=== PATIENT | female | born 1930 | race Caucasian/White ===

== ENCOUNTER 2017-09-29 13:20 | Observation (INO) ==
--- NOTE | 2017-09-29 14:21 | ED ---
HPI General Chief Complaint: Altered Mental Status Stated Complaint: psych eval/eac Time Seen by Provider: 09/29/17 13:47 History of Present Illness HPI narrative: Patient brought in to the emergency department via EVAC and the police. Patient apparently has dementia and there is an open DCF investigation concerning her and there is concern the patient has not been taking her medication properly. She dropped her doctor's office today, but she is not supposed to drive. He apparently appear confused and does not understand what is going on. Upon my assessment patient does not know why she is here. She has been placed under Souza act by the [place] [employer] [facility]. Related Data Home Medications Medication Instructions Recorded Confirmed bumetanide 0.5 mg PO DAILY 09/29/17 09/29/17 cyclosporine [Restasis] 1 drp OPHTHALMIC (EYE) Q12H 09/29/17 09/29/17 diltiazem HCl [DILT-XR] 240 mg PO DAILY 09/29/17 09/29/17 donepezil 5 mg PO DAILY 09/29/17 09/29/17 levothyroxine 50 mcg PO DAILY 09/29/17 09/29/17 memantine 10 mg PO BID 09/29/17 09/29/17 metoprolol tartrate 75 mg PO TID 09/29/17 09/29/17 nystatin 4 ml PO QID 09/29/17 09/29/17 pantoprazole 40 mg PO DAILY 09/29/17 09/29/17 potassium chloride 20 meq PO DAILY 09/29/17 09/29/17 pravastatin 40 mg PO HS 09/29/17 09/29/17 quetiapine 25 mg PO BID 09/29/17 09/29/17 Allergies Allergy/AdvReac Type Severity Reaction Status Date / Time methylprednisolone Allergy Unknown unknown Verified 09/29/17 13:46 metoprolol Allergy Unknown unknown Verified 09/29/17 13:46 milk Allergy Unknown unknown Verified 09/29/17 13:46 shellfish derived Allergy Unknown unknown Verified 09/29/17 13:46 warfarin Allergy Unknown unknown Verified 09/29/17 13:46 Review of Systems ROS Unobtainable unobtainable due to mental status PMFSH Medical History Medical History Cardiac pacemaker (Acute) Congestive heart failure (CHF) (Acute) Dementia (Acute) GERD (gastroesophageal reflux disease) (Acute) Hypercholesteremia (Acute) Hypertension (Acute) Hypothyroidism (Acute) Surgical history unknown (Acute) Social History Social History Recent Travel in [facility] within the Last 8 Weeks: No Recent Out of Country Travel within the Last 8 Weeks: No Immunization History Tetanus Immunization: Unsure Hx Influenza Vaccine This Season: Unable to Assess Exam Narrative Exam Narrative: GENERAL: No acute distress. SKIN: Focused skin assessment warm/dry. HEAD: Atraumatic. Normocephalic. EYES: Pupils equal and round. No scleral icterus. No injection or drainage. ENT: No nasal bleeding or discharge. Mucous membranes pink and moist. NECK: Trachea midline. No JVD. CARDIOVASCULAR: Regular rate and rhythm. No murmur appreciated. RESPIRATORY: No accessory muscle use. Clear to auscultation. Breath sounds equal bilaterally. GASTROINTESTINAL: Abdomen soft, non-tender, nondistended. Hepatic and splenic margins not palpable. MUSCULOSKELETAL: No obvious deformities. No clubbing. No cyanosis. No edema. NEUROLOGICAL: Awake and alert. No obvious cranial nerve deficits. Motor grossly within normal limits. Normal speech. PSYCHIATRIC: Appropriate mood and affect; patient is oriented to person only. She is not oriented to time or place other than to state that she is in the hospital. Course Initial Documented Vital Signs Temperature 98.4 F 09/29/17 13:56 Pulse Rate 70 09/29/17 13:56 Respiratory Rate 20 09/29/17 13:56 Blood Pressure 199/88 H 09/29/17 13:56 Pulse Oximetry 99 09/29/17 13:56 Last Documented Vital Signs Temperature 98.4 F 09/29/17 13:56 Pulse Rate 70 09/29/17 13:56 Respiratory Rate 20 09/29/17 13:56 Blood Pressure 199/88 H 09/29/17 13:56 Pulse Oximetry 99 09/29/17 13:56 Medical Decision Making [facility] Narrative Medical decision making narrative: Patient presents to the emergency department under Souza act for altered mental status. Patient placed on a light technician , continuous pulse ox, and IV access obtained. Head CT, chest x-ray, EKG and medical clearance labs ordered. Head CT: CONCLUSION:1. No definite acute finding is identified. There is a focal area of high density measuring 5 mm in the right parafalcine location in the right frontal lobe in the high convexity. Since this was partially present on the a prior examination from 2016 it is extremely unlikely to represent acute blood products. However, it is more prominent than the 2016 study so suggest attention to this at follow-up imaging.2. Otherwise, stable examination with mild generalized atrophy and mild chronic periventricular white matter change. CXR shows no acute abnormality. Discussed CT read with radiologist, advised MR w/wo can better differentiate lesion although it was present before. But patient has a pacemaker, so unable to get MRI. CBC and urinalysis within normal limits. ETOH and UDS negative. 1731: Patient has been admitted for altered mental status, psych consult placed. Differential Diagnosis Differential Diagnosis: UTI, CVA, ACS, dementia, TIA Lab Data Result diagrams: 09/29/17 14:50 09/29/17 14:50 Lab Results 09/29/17 09/29/17 09/29/17 Range/Units 14:50 14:50 14:50 WBC 5.8 (4.0-11.0) th/mm3 RBC 4.30 (4.00-5.30) mil/mm3 Hgb 11.7 (11.6-15.3) gm/dL Hct 36.3 (35.0-46.0) % MCV 84.6 (80.0-100.0) fL MCH 27.3 (27.0-34.0) pg MCHC 32.2 (32.0-36.0) % RDW 15.3 (11.6-17.2) % Plt Count 235 (150-450) th/mm3 MPV 8.8 (7.0-11.0) fL Neut % (Auto) 65.6 (16.0-70.0) % Lymph % (Auto) 24.4 (9.0-44.0) % [place] % (Auto) 7.6 (0.0-8.0) % Eos % (Auto) 1.4 (0.0-4.0) % Baso % (Auto) 1.0 (0.0-2.0) % Neut # (Auto) 3.8 (1.8-7.7) th/mm3 Lymph # (Auto) 1.4 (1.0-4.8) th/mm3 [place] # (Auto) 0.4 (0.0-0.9) th/mm3 Eos # (Auto) 0.1 (0.0-0.4) th/mm3 Baso # (Auto) 0.1 (0.0-0.2) th/mm3 WBC Differential . Differential Comment Auto diff final Sodium 144 (136-145) meq/L Potassium 4.2 (3.5-5.1) meq/L Chloride 109 H (98-107) meq/L Carbon Dioxide 24.4 (21.0-32.0) meq/L Anion Gap 11 (5-15) meq/L BUN 16 (7-18) mg/dL Creatinine 0.96 (0.50-1.00) mg/dL Estimated GFR 55 L (>89) mL/min Random Glucose 77 (74-106) mg/dL Calcium 8.9 (8.5-10.1) mg/dL Magnesium 2.2 (1.5-2.5) mg/dL Total Bilirubin 0.7 (0.2-1.0) mg/dL AST 26 (15-37) U/L ALT 17 (10-53) U/L Alkaline Phosphatase 116 (45-117) U/L Total Creatine Kinase 143 (26-192) U/L CK-MB (CK-2) 2.5 (0.5-3.6) ng/mL Troponin I Less than 0.02 L (0.02-0.05) ng/mL Total Protein 7.5 (6.4-8.2) g/dL Albumin 3.6 (3.4-5.0) g/dL TSH 0.301 L (0.358-3.740) uIU/mL Free T4 (0.76-1.46) ng/dL Urine Color (Yellw/Straw) Urine Clarity (Clear) Urine pH (5.0-8.5) Ur Specific [place] (1.002-1.035) Urine Protein (Neg-Trace) mg/dL Urine Glucose (UA) (Negative) mg/dL Urine Ketones (Negative) mg/dL Urine Occult Blood (Negative) Urine Nitrate (Negative) Urine Bilirubin (Negative) Urine Urobilinogen (Less than 2) mg/dL Ur Leukocyte Esterase (Negative) Urine RBC (0-3) /hpf Urine WBC (0-5) /hpf Ur Squamous Epith Cells (0-5) /hpf Micro UA Comment Urine Culture Comments Urine Opiates Screen (Neg) Ur Barbiturates Screen (Neg) Ur Amphetamines Screen (Neg) U Benzodiazepines Scrn (Neg) Urine Cocaine Screen (Neg) U Cannabinoids Screen (Neg) Serum Alcohol Less than 3 (0-5) mg/dL 09/29/17 09/29/17 09/29/17 Range/Units 14:50 14:55 14:55 WBC (4.0-11.0) th/mm3 RBC (4.00-5.30) mil/mm3 Hgb (11.6-15.3) gm/dL Hct (35.0-46.0) % MCV (80.0-100.0) fL MCH (27.0-34.0) pg MCHC (32.0-36.0) % RDW (11.6-17.2) % Plt Count (150-450) th/mm3 MPV (7.0-11.0) fL Neut % (Auto) (16.0-70.0) % Lymph % (Auto) (9.0-44.0) % [place] % (Auto) (0.0-8.0) % Eos % (Auto) (0.0-4.0) % Baso % (Auto) (0.0-2.0) % Neut # (Auto) (1.8-7.7) th/mm3 Lymph # (Auto) (1.0-4.8) th/mm3 [place] # (Auto) (0.0-0.9) th/mm3 Eos # (Auto) (0.0-0.4) th/mm3 Baso # (Auto) (0.0-0.2) th/mm3 WBC Differential Differential Comment Sodium (136-145) meq/L Potassium (3.5-5.1) meq/L Chloride (98-107) meq/L Carbon Dioxide (21.0-32.0) meq/L Anion Gap (5-15) meq/L BUN (7-18) mg/dL Creatinine (0.50-1.00) mg/dL Estimated GFR (>89) mL/min Random Glucose (74-106) mg/dL Calcium (8.5-10.1) mg/dL Magnesium (1.5-2.5) mg/dL Total Bilirubin (0.2-1.0) mg/dL AST (15-37) U/L ALT (10-53) U/L Alkaline Phosphatase (45-117) U/L Total Creatine Kinase (26-192) U/L CK-MB (CK-2) (0.5-3.6) ng/mL Troponin I (0.02-0.05) ng/mL Total Protein (6.4-8.2) g/dL Albumin (3.4-5.0) g/dL TSH (0.358-3.740) uIU/mL Free T4 1.08 (0.76-1.46) ng/dL Urine Color Yellow (Yellw/Straw) Urine Clarity Clear (Clear) Urine pH 6.0 (5.0-8.5) Ur Specific [place] 1.009 (1.002-1.035) Urine Protein Negative (Neg-Trace) mg/dL Urine Glucose (UA) Negative (Negative) mg/dL Urine Ketones Negative (Negative) mg/dL Urine Occult Blood Negative (Negative) Urine Nitrate Negative (Negative) Urine Bilirubin Negative (Negative) Urine Urobilinogen Less than 2 (Less than 2) mg/dL Ur Leukocyte Esterase Negative (Negative) Urine RBC 1 (0-3) /hpf Urine WBC Less than 1 (0-5) /hpf Ur Squamous Epith Cells <1 (0-5) /hpf Micro UA Comment Culture not ind Urine Culture Comments Culture not ind Urine Opiates Screen Neg (Neg) Ur Barbiturates Screen Neg (Neg) Ur Amphetamines Screen Neg (Neg) U Benzodiazepines Scrn Neg (Neg) Urine Cocaine Screen Neg (Neg) U Cannabinoids Screen Neg (Neg) Serum Alcohol (0-5) mg/dL Imaging Data Radiologist's impression: Chest X-Ray 09/29/17 14:04 CONCLUSION: No acute cardiopulmonary disease. Head CT 09/29/17 14:04 CONCLUSION: 1. No definite acute finding is identified. There is a focal area of high density measuring 5 mm in the right parafalcine location in the right frontal lobe in the high convexity. Since this was partially present on the a prior examination from 2016 it is extremely unlikely to represent acute blood products. However, it is more prominent than the 2016 study so suggest attention to this at follow-up imaging. 2. Otherwise, stable examination with mild generalized atrophy and mild chronic periventricular white matter change. ECG Data Attestation: I personally reviewed and interpreted this ECG as follows: ( Ventricular paced, rate 70, QTC 463, left axis deviation) Discharge Plan Discharge Disposition Patient Disposition: 30 Still Patient Discharge Condition Condition: Stable Discharge Details Diagnosis: Altered mental status Physicians Team ED Provider: Cinda Arevalo Primary Care Provider: John Sandoval Other Providers: John Ashby Rxs /Orders / Referrals /Forms Prescriptions: No Action quetiapine 25 mg Tablet 25 mg PO BID RF: 0 nystatin 100,000 unit/mL Suspension 4 ml PO QID RF: 0 donepezil 5 mg Tablet 5 mg PO DAILY RF: 0 diltiazem HCl [DILT-XR] 240 mg Capsule,Ext.Rel 24h Degradable 240 mg PO DAILY RF: 0 pravastatin 40 mg Tablet 40 mg PO HS RF: 0 levothyroxine 50 mcg Tablet 50 mcg PO DAILY RF: 0 pantoprazole 40 mg Tablet,Delayed Release (Dr/Ec) 40 mg PO DAILY RF: 0 bumetanide 0.5 mg Tablet 0.5 mg PO DAILY RF: 0 cyclosporine [Restasis] 0.05 % [place] 1 drp OPHTHALMIC (EYE) Q12H RF: 0 memantine 10 mg Tablet 10 mg PO BID RF: 0 metoprolol tartrate 25 mg Tablet 75 mg PO TID RF: 0 potassium chloride 20 mEq Tablet Extended Release 20 meq PO DAILY RF: 0 Status ED Status: With Doctor
--- NOTE | 2017-09-29 14:50 | CT ---
EXAM DATE: 09/29/2017 2:34 PM EDT AGE/SEX: 87 years / Female INDICATIONS: Altered mental status. CLINICAL DATA: This is the patient's initial encounter. Patient reports that signs and symptoms have been present for 1 day and indicates a pain score of Nonresponsive. MEDICAL/SURGICAL HISTORY: Non-responsive. Thyroidectomy. RADIATION DOSE: 56.35 CTDI (mGy) COMPARISON: [facility], CT BRAIN W AND W/O CONTRAST, 05/25/2015. [facility], CT BRAIN W/O CONTRAST, 04/25/2014. . TECHNIQUE: CT of the head without contrast. Using automated exposure control and adjustment of the mA and/or kV according to patient size, radiation dose was kept as low as reasonably achievable to ob tain optimal diagnostic quality images. DICOM format image data is available electronically for revi ew and comparison. FINDINGS: Cerebrum: There is mild generalized atrophy and ventricles are normal given the degree of atrophy. M ild periventricular white matter change is present. There is a focal area of high density in a parafa lcine location at the right frontal high convexity. Is present to some degree on the prior study as w ell. Otherwise, no midline shift, mass lesion, hemorrhage or acute infarction. No extraaxial fluid c ollections are seen. Posterior Fossa: The cerebellum and brainstem demonstrate no acute abnormality. The 4th ventricle is midline. The cerebellopontine angle is within normal limits. Extracranial: There is mild mucoperiosteal thickening within the right maxillary antrum. Remaining v isualized paranasal sinuses are clear. Skull: The calvaria is intact. No skull fracture. CONCLUSION: 1. No definite acute finding is identified. There is a focal area of high density measuring 5 mm in the right parafalcine location in the right frontal lobe in the high convexity. Since this was partia lly present on the a prior examination from 2016 it is extremely unlikely to represent acute blood pr oducts. However, it is more prominent than the 2016 study so suggest attention to this at follow-up i jaqui. 2. Otherwise, stable examination with mild generalized atrophy and mild chronic periventricular whit e matter change. Electronically signed by: Antonio Lawson MD 09/29/2017 2:48 PM EDT
--- NOTE | 2017-09-29 15:38 | XR ---
EXAM DATE: 09/29/2017 3:22 PM EDT AGE/SEX: 87 years / Female INDICATIONS: . Syncope. CLINICAL DATA: This is the patient's initial encounter. Patient reports that signs and symptoms have been present for 1 day and indicates a pain score of 0/10. MEDICAL/SURGICAL HISTORY: . dementia, CHF, Irregular heart beat. history obtained from nurse. Pacemaker. COMPARISON: No prior exams available for comparison. FINDINGS: The lungs are clear without infiltrate, nodule, or mass. There is no appreciable pleural effusion fo r technique. Heart and mediastinum are unremarkable. Subclavian pacer wires are present with tips i n the right atrium and ventricle. CONCLUSION: No acute cardiopulmonary disease. Electronically signed by: Tara Garcia MD 09/29/2017 3:36 PM EDT
[2017-09-29 16:04] LABS: Baso # (Auto) 0.1 th/mm3 (0.0-0.2); Eos # (Auto) 0.1 th/mm3 (0.0-0.4); Eos % (Auto) 1.4 % (0.0-4.0); Hematocrit 36.3 % (35.0-46.0); Hemoglobin 11.7 gm/dL (11.6-15.3); Lymph # (Auto) 1.4 th/mm3 (1.0-4.8); Lymph % (Auto) 24.4 % (9.0-44.0); Mean Corpuscular HGB Conc 32.2 % (32.0-36.0); Mean Corpuscular Hemoglobin 27.3 pg (27.0-34.0); Mean Corpuscular Volume 84.6 fL (80.0-100.0); Mean Platelet Volume 8.8 fL (7.0-11.0); Mono # (Auto) 0.4 th/mm3 (0.0-0.9); Mono % (Auto) 7.6 % (0.0-8.0); Neut # (Auto) 3.8 th/mm3 (1.8-7.7); Neut % (Auto) 65.6 % (16.0-70.0); Platelet Count 235 th/mm3 (150-450); Red Cell Distribution Width 15.3 % (11.6-17.2); White Blood Count 5.8 th/mm3 (4.0-11.0)
[2017-09-29 16:10] LABS: Bilirubin,Urine Negative (Negative); Clarity,Urine Clear (Clear); Color,Urine Yellow (Yellw/Straw); Glucose,Urine (UA) Negative (Negative); Leukocyte Esterase,Urine Negative (Negative); Nitrite,Urine Negative (Negative); Specific Gravity,Urine 1.009 (1.002-1.035); Squamous Epithelial Cell,Urine <1 /hpf (0-5)
[2017-09-29 16:12] LABS: Amphetamine Screen,Urine Neg (Neg); Barbiturate Screen,Urine Neg (Neg); Cannabinoid Screen,Urine Neg (Neg); Cocaine Screen,Urine Neg (Neg)
[2017-09-29 16:13] LABS: Opiate Screen,Urine Neg (Neg)
[2017-09-29 16:38] LABS: Alanine Aminotransferase 17 U/L (10-53); Albumin 3.6 g/dL (3.4-5.0); Alkaline Phosphatase 116 U/L (45-117); Anion Gap 11 meq/L (5-15); Aspartate Aminotransferase 26 U/L (15-37); Blood Urea Nitrogen 16 mg/dL (7-18); Calcium 8.9 mg/dL (8.5-10.1); Carbon Dioxide 24.4 meq/L (21.0-32.0); Chloride 109 meq/L (98-107); Creatine Kinase 143 U/L (26-192); Glomerular Filtration Rate 55 mL/min (>89); Glucose,Random 77 mg/dL (74-106); Magnesium 2.2 mg/dL (1.5-2.5); Sodium 144 meq/L (136-145); Thyroid Stimulating Hormone 0.301 uIU/mL (0.358-3.740); Total Protein 7.5 g/dL (6.4-8.2)
[2017-09-29 16:39] LABS: Potassium 4.2 meq/L (3.5-5.1)
--- NOTE | 2017-09-29 16:45 | P.CONPSY ---
Provisional Diagnosis Admission Date: September 29, 2017 13:20 Garber I.: 1. Cognitive impairment Suspect underlying dementia but rule out component of overlying delirium due to general medical condition Garber II.: Deferred History of Present Illness Service: Psychiatry Consult date: 09/29/17 Requesting Physician: Cinda Arevalo Reason for Consult: Souza act Primary Care Provider: John Sandoval MD History of Present Illness: Ms. Holloway is an 87-year-old female of uncertain past psychiatric history who presents under a Souza act by [facility] alleging that the patient has a history of dementia, that there is an open DCF investigation, that the patient has not been taking medications properly and that she has been driving contrary to orders. Reviewing the electronic medical record, I see no previous psychiatric contact within our system. Patient seen and examined. Chart reviewed. Case discussed with staff in the ED. On my examination today, the patient presents as fairly confused. MMSE score is 6/30. She says that she has been brought into the hospital "accidentally." She insists "I'm as clear as they come." I can elicit no depressive or hypomanic/manic symptoms. She denies any suicidal or homicidal ideation. She denies any audiovisual hallucinations. No pankaj delusions. Patient says that she has not eaten anything since yesterday evening, and when I ask why the patient simply says that she did not eat today. Psychiatric interview is limited because of the patient's cognitive impairment. No acute physical complaints. Past psychiatric history: Patient is likely an unreliable historian. She denies a history of psychiatric diagnosis. When I asked whether she has a history of dementia, she replies "they all dream of it." Unclear who "they" is in this context. She is not presently under the care of a psychiatrist. She denies a history of suicide attempts. Family history: Patient denies any family history of mental illness. Chemical dependency history: No reported substance use issues. Social history: Patient says that she lives alone. She is originally from [place]. She attended secondary school but did not go to college even though she was, in her words, "brilliant." She says that her family did not have the money, and so her brother was sent to college instead. She says that her work was "the greatest of them all" although she cannot tell me exactly what line of work she was in. She was for 5 years ago she tells me. She has no children. Patient requests that I not reach out to her sister, Ms. Griffin (listed as ' Jeremy' in the EMR). I did with patient's permission try to reach friend Evelyn Barclay at the number listed in the EMR. This number kept ringing with no opportunity to leave a VM. Review of Systems other (Significantly limited secondary to cognitive impairment) [facility] - Medical History Medical History: Medical History (Last Updated 09/29/17 @ 14:04 by Sobia Quintana) Cardiac pacemaker Congestive heart failure (CHF) Dementia GERD (gastroesophageal reflux disease) Hypercholesteremia Hypertension Hypothyroidism Surgical history unknown Medications and Allergies Allergies Allergy/AdvReac Type Severity Reaction Status Date / Time methylprednisolone Allergy Unknown unknown Verified 09/29/17 13:46 metoprolol Allergy Unknown unknown Verified 09/29/17 13:46 milk Allergy Unknown unknown Verified 09/29/17 13:46 shellfish derived Allergy Unknown unknown Verified 09/29/17 13:46 warfarin Allergy Unknown unknown Verified 09/29/17 13:46 Home Medications Medication Instructions Recorded Confirmed Type bumetanide 0.5 mg PO DAILY 09/29/17 09/29/17 History cyclosporine [Restasis] 1 drp OPHTHALMIC (EYE) Q12H 09/29/17 09/29/17 History diltiazem HCl [DILT-XR] 240 mg PO DAILY 09/29/17 09/29/17 History donepezil 5 mg PO DAILY 09/29/17 09/29/17 History levothyroxine 50 mcg PO DAILY 09/29/17 09/29/17 History memantine 10 mg PO BID 09/29/17 09/29/17 History metoprolol tartrate 75 mg PO TID 09/29/17 09/29/17 History nystatin 4 ml PO QID 09/29/17 09/29/17 History pantoprazole 40 mg PO DAILY 09/29/17 09/29/17 History potassium chloride 20 meq PO DAILY 09/29/17 09/29/17 History pravastatin 40 mg PO HS 09/29/17 09/29/17 History quetiapine 25 mg PO BID 09/29/17 09/29/17 History Exam Vital signs: Vital Signs 09/29/17 13:56 Temperature 98.4 F Pulse Rate 70 Respiratory Rate 20 Blood Pressure 199/88 H Pulse Oximetry 99 Intake & Output 09/28/17 09/29/17 09/29/17 18:59 06:59 18:59 Weight 58.967 kg Narrative: Physical exam completed by ED provider. On my examination today, the patient appears to be in no acute physical distress. No motor abnormalities noted except that the patient does have a mild resting hand tremor. Labs and vital signs reviewed: Laboratory Tests 09/29/17 09/29/17 09/29/17 14:50 14:50 14:50 WBC 5.8 Hgb 11.7 Plt Count 235 Sodium 144 Potassium 4.2 Chloride 109 H Carbon Dioxide 24.4 BUN 16 Creatinine 0.96 Estimated GFR 55 L AST 26 ALT 17 Alkaline Phosphatase 116 Total Creatine Kinase 143 Troponin I Less than 0.02 L TSH 0.301 L Urine Opiates Screen Ur Barbiturates Screen Ur Amphetamines Screen U Benzodiazepines Scrn Urine Cocaine Screen U Cannabinoids Screen Serum Alcohol Less than 3 09/29/17 14:55 WBC Hgb Plt Count Sodium Potassium Chloride Carbon Dioxide BUN Creatinine Estimated GFR AST ALT Alkaline Phosphatase Total Creatine Kinase Troponin I TSH Urine Opiates Screen Neg Ur Barbiturates Screen Neg Ur Amphetamines Screen Neg U Benzodiazepines Scrn Neg Urine Cocaine Screen Neg U Cannabinoids Screen Neg Serum Alcohol CK is pending. Impressions Chest X-Ray 09/29/17 14:04 CONCLUSION: No acute cardiopulmonary disease. Head CT 09/29/17 14:04 CONCLUSION: 1. No definite acute finding is identified. There is a focal area of high density measuring 5 mm in the right parafalcine location in the right frontal lobe in the high convexity. Since this was partially present on the a prior examination from 2016 it is extremely unlikely to represent acute blood products. However, it is more prominent than the 2016 study so suggest attention to this at follow-up imaging. 2. Otherwise, stable examination with mild generalized atrophy and mild chronic periventricular white matter change. Mental Status Examination Appearance: Other (Fair grooming and hygiene) Consciousness: Alert Orientation: Person (Person only) Motor Activity: Other (Motor exam as above) Speech: Hesitant Language: Other (Somewhat rambling) Fund of Knowledge: Inadequate Attention and Concentration: Easily distracted Memory: Impaired Mood: Appropriate Affect: Appropriate Thought Process & Associations: Circumstantial Thought Content: Other (Some poverty of thought) Hallucination Type: None Delusion Type: None Suicidal Ideation: No Suicidal Plan: No Suicidal Intention: No Homicidal Ideation: No Homicidal Plan: No Homicidal Intention: No Mental Status Exam Remarks: Insight and judgment, I suspect, are poor Assessment and Plan - Assessment (1) Cognitive impairment Code(s): R41.89 - Other symptoms and signs involving cognitive functions and awareness Status: Acute - Plan Plan: 87-year-old female of uncertain past psychiatric history who presents under a Souza act alleging history of dementia and alleging patient is not taking medications properly and driving when she should not. Collateral information is presently wanting. Psychiatry is consulted because of the Souza Act. On my exam, patient is confused and her MMSE score is significantly depressed. This presentation is not inconsistent with dementia, although it is also possible that there is a component of overlying delirium, perhaps multifactorial with contributions from marked hypertension, possible thyroid derangement, possible ICH, possibly other as yet occult causes. --BP is presently poorly controlled and may be contributing to poor mental status. --Consider expanding AMS workup by obtaining follow up free T4, B12/thiamine/ RBC folate, ammonia, HIV, RPR. 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 --I will leave Souza Act in place for now. Unclear if there is behavioral disturbance in the setting of cognitive impairment of the sort that would need to be managed on inpatient psychiatric unit; patient is presently calm and cooperative. If placement is required, this can likely be more readily arranged from the medical floor and the BA can be lifted prior to placement. I will plan to follow patient in consultation on the medical floor or in the CDU. Thank you for this consultation. Justification for Continued Inpatient Stay: Per primary team.
[2017-09-29 16:51] LABS: Creatine Kinase MB 2.5 ng/mL (0.5-3.6)
[2017-09-29] MEDS ORDERED: dilTIAZem 60 MG Tablet PO ONE (18:35)
--- NOTE | 2017-09-29 18:50 | P.HPFP ---
History of Present Illness History of Present Illness: 87-year-old female, past medical history of CHF, pacer placement, hypertension, thyroid disorder, presents under Souza act from doctor's office where she was deemed him capable of driving home and caring for herself due to her severe dementia. [facility] was contacted and is involved in the case, and most of the history is obtained from the ED physician who spoke with EMS and the doctor's note and the police Souza act form. Apparently the neighbors were primarily caring for this elderly woman until she has seemed to decompensate over time. Doctor became concerned today when she was presenting with severe memory loss after having driven to the doctor's office herself. There are no caretakers or family members present to assist in the history taking. When the patient is asked how she got here she does explain that she went to the doctor's office for regular visit and she was shocked when they put her in a vehicle and took her here. "They forced me here practically. He knew something was not working well and I have to figure out what it was. I needed a new prescription."The patient continues to talk very circumferentially cannot tell a clear story. During her conversation she forgets what she is talking about and starts laughing. On review of systems she denies all, however she does admit to having a small amount of blood come out of her rectum overnight 3 days ago. Denies any chest pain/shortness of breath. Denies any fever/chills. No acute events. - Diagnosis (1) Altered mental status (2) Blood per rectum (3) Hypertension (4) CHF (congestive heart failure) (5) GERD (gastroesophageal reflux disease) (6) Hypothyroidism (7) DVT prophylaxis Inpatient Certification: I certify that the inpatient services were ordered in accordance with Medicare regulations governing the order. This includes certification that hospital inpatient services are reasonable and necessary and in the case of services not specified as inpatient-only under 42 CFR 419.22(n), that they are appropriately provided as inpatient services in accordance to with the 2-midnight benchmark under 43 CFR 412.3(e) Review of Systems All other systems reviewed negative except as stated in HPI, unobtainable due to mental condition, unobtainable due to mental status Constitutional: Reports anorexia PMFSH - History History Provided By: Patient, Medical Record, [employer] / EMT, Law Enforcement - Medical History Medical History: Medical History (Last Reviewed 09/29/17 @ 20:53 by Paola Samson MD, R2) Cardiac pacemaker Congestive heart failure (CHF) Dementia GERD (gastroesophageal reflux disease) Hypercholesteremia Hypertension Hypothyroidism Surgical history unknown - Tobacco History Second Hand Smoke Exposure: No Tobacco Use In Past 30 Days: No Smoking Status: Never smoker - Alcohol History How Often Do You Have a Drink Containing Alcohol: Never - Substance Use History Substance History: No History of Abuse - Travel History Recent Travel in the [place] Within the Last 8 Weeks: No Recent Travel Out of the Country Within the Last 8 Weeks: No - Immunization History Tetanus Immunization: Unsure Hx Influenza Vaccine This Season: Unable to Assess Medications and Allergies Allergies Allergy/AdvReac Type Severity Reaction Status Date / Time methylprednisolone Allergy Unknown unknown Verified 09/29/17 13:46 metoprolol Allergy Unknown unknown Verified 09/29/17 13:46 milk Allergy Unknown unknown Verified 09/29/17 13:46 shellfish derived Allergy Unknown unknown Verified 09/29/17 13:46 warfarin Allergy Unknown unknown Verified 09/29/17 13:46 Home Medications Medication Instructions Recorded Confirmed Type bumetanide 0.5 mg PO DAILY 09/29/17 09/29/17 History cyclosporine [Restasis] 1 drp OPHTHALMIC (EYE) Q12H 09/29/17 09/29/17 History diltiazem HCl [DILT-XR] 240 mg PO DAILY 09/29/17 09/29/17 History donepezil 5 mg PO DAILY 09/29/17 09/29/17 History levothyroxine 50 mcg PO DAILY 09/29/17 09/29/17 History memantine 10 mg PO BID 09/29/17 09/29/17 History metoprolol tartrate 75 mg PO TID 09/29/17 09/29/17 History pantoprazole 40 mg PO DAILY 09/29/17 09/29/17 History potassium chloride 20 meq PO DAILY 09/29/17 09/29/17 History pravastatin 40 mg PO HS 09/29/17 09/29/17 History quetiapine 25 mg PO BID 09/29/17 09/29/17 History Exam Vital signs: Vital Signs 09/29/17 13:56 09/29/17 18:04 Temperature 98.4 F Pulse Rate 70 70 Respiratory Rate 20 23 Blood Pressure 199/88 H 202/86 H Pulse Oximetry 99 99 Intake & Output 09/28/17 09/29/17 09/29/17 18:59 06:59 18:59 Weight 58.967 kg - Constitutional no acute distress, thin, cooperative - Routine HEENT Exam Head: Present: normocephalic, atraumatic - Routine Respiratory Exam Present: CTA bilaterally - Routine Cardiovascular Exam Present: RRR, S1, S2 - Routine Abdominal Exam Present: soft, normoactive bowel sounds - Routine Extremities Exam Present: normal capillary refill - Routine Skin Exam Present: intact - Routine Neurological Exam Present: alert (oriented x 1), CN II-XII intact, moving all extremities, normal tone, normal speech Results - Labs Result diagrams: 09/29/17 14:50 09/29/17 14:50 Abnormal lab results 09/29/17 09/29/17 Range/Units 14:50 14:50 Chloride 109 H (98-107) meq/L Estimated GFR 55 L (>89) mL/min Troponin I Less than 0.02 L (0.02-0.05) ng/mL TSH 0.301 L (0.358-3.740) uIU/mL Short CBC 09/29/17 Range/Units 14:50 WBC 5.8 (4.0-11.0) th/mm3 Hgb 11.7 (11.6-15.3) gm/dL Hct 36.3 (35.0-46.0) % Plt Count 235 (150-450) th/mm3 BMP 09/29/17 14:50 Sodium 144 Potassium 4.2 Chloride 109 H Carbon Dioxide 24.4 BUN 16 Creatinine 0.96 Calcium 8.9 Cardiac Enzymes 09/29/17 Range/Units 14:50 Total Creatine Kinase 143 (26-192) U/L CK-MB (CK-2) 2.5 (0.5-3.6) ng/mL Troponin I Less than 0.02 L (0.02-0.05) ng/mL Liver Function 09/29/17 Range/Units 14:50 Total Bilirubin 0.7 (0.2-1.0) mg/dL AST 26 (15-37) U/L ALT 17 (10-53) U/L Alkaline Phosphatase 116 (45-117) U/L Albumin 3.6 (3.4-5.0) g/dL Urine 09/29/17 Range/Units 14:55 Urine Color Yellow (Yellw/Straw) Urine Clarity Clear (Clear) Urine pH 6.0 (5.0-8.5) Ur Specific [place] 1.009 (1.002-1.035) Urine Protein Negative (Neg-Trace) mg/dL Urine Glucose (UA) Negative (Negative) mg/dL - Imaging Impressions Chest X-Ray 09/29/17 14:04 CONCLUSION: No acute cardiopulmonary disease. Head CT 09/29/17 14:04 CONCLUSION: 1. No definite acute finding is identified. There is a focal area of high density measuring 5 mm in the right parafalcine location in the right frontal lobe in the high convexity. Since this was partially present on the a prior examination from 2016 it is extremely unlikely to represent acute blood products. However, it is more prominent than the 2016 study so suggest attention to this at follow-up imaging. 2. Otherwise, stable examination with mild generalized atrophy and mild chronic periventricular white matter change. Caprini VTE Risk Assessment Caprini VTE Risk Assessment: No/Low Risk (score <= 1) Caprini Risk Assessment Model: Point Value = 1 Point Value = 2 Point Value = 3 Point Value = 5 Age 41-60 Minor surgery BMI > 25 kg/m2 Swollen legs Varicose veins or History of unexplained or recurrent spontaneous Oral contraceptives or hormone replacement Sepsis (< 1 month) Serious lung disease, including pneumonia (< 1 month) Abnormal pulmonary function Acute myocardial infarction Congestive heart failure (< 1 month) History of inflammatory bowel disease Medical patient at bed rest Age 61-74 Arthroscopic surgery Major open surgery (> 45 min) Laparoscopic surgery (> 45 min) Malignancy Confined to bed (> 72 hours) Immobilizing plaster cast Central venous access Age >= 75 History of VTE Family history of VTE Factor V Leiden Prothrombin [id number] Lupus anticoagulant Anticardiolipin antibodies Elevated serum homocysteine Heparin-induced thrombocytopenia Other congenital or acquired thrombophilia Stroke (< 1 month) Elective arthroplasty Hip, pelvis, or leg fracture Acute spinal cord injury (< 1 month) Prophylaxis Regimen: Total Risk Factor Score Risk Level Prophylaxis Regimen 0-1 Low Early ambulation 2 Moderate Order ONE of the following: *Sequential Compression Device (SCD) *Heparin 5000 units SQ BID 3-4 Higher Order ONE of the following medications: *Heparin 5000 units SQ TID *Enoxaparin/Lovenox 40 mg SQ daily (WT < 150 kg, CrCl > 30 mL/min) *Enoxaparin/Lovenox 30 mg SQ daily (WT < 150 kg, CrCl > 10-29 mL/min) *Enoxaparin/Lovenox 30 mg SQ BID (WT < 150 kg, CrCl > 30 mL/min) AND/OR *Sequential Compression Device (SCD) 5 or more Highest Order ONE of the following medications: *Heparin 5000 units SQ TID (Preferred with Epidurals) *Enoxaparin/Lovenox 40 mg SQ daily (WT < 150 kg, CrCl > 30 mL/min) *Enoxaparin/Lovenox 30 mg SQ daily (WT < 150 kg, CrCl > 10-29 mL/min) *Enoxaparin/Lovenox 30 mg SQ BID (WT < 150 kg, CrCl > 30 mL/min) AND *Sequential Compression Device (SCD) Assessment and Plan - Assessment (1) Altered mental status Code(s): R41.82 - Altered mental status, unspecified Status: Acute Plan: Differential includes chronic dementia versus delirium versus electrolyte abnormality versus cranial lesion versus hypertension induced delirium Afebrile, not meeting sepsis criteria CBC normal, CMP normal, UA normal, troponin negative Admit for observation Follow-up EKG, troponin negative Telemetry Neurochecks every 4 hours, vital signs every 4 hours Follow-up MMA, acetaminophen level, ammonia, NARINDER, ESR, magnesium and phosphorus , RPR, B12 Follow-up labs in a.m. Follow-up EEG Follow-up psychiatry Recs -Continue workup for causes of delirium -Hold in observation, will likely left Souza act medically cleared Follow-up with case management for placement -Per notes, patient previously was in a SNF, we are uncertain why she has moved to independent living (2) Blood per rectum Code(s): K62.5 - Hemorrhage of anus and rectum Status: Acute Plan: 1 episode 3 days ago per patient, poor historian, 1 cm x 1 cm blood clot Likely hemorrhoid versus chronic GI bleed versus diverticulosis Initial hemoglobin normal, follow-up hemoglobin in 6 hours Follow-up occult blood screen (3) Hypertension Code(s): I10 - Essential (primary) hypertension Status: Acute Plan: 199/88, 202/86 in ED Status post 60 mg diltiazem p.o. 1 with improvement of BP to 171/80 Continue home medications as listed from [facility] 1 week ago -Continue diltiazem 240 mg daily tomorrow -Continue metoprolol 75 mg 3 times daily, resumed tonight ( we have noted the allergy listed in [employer] from 2008, however the [facility] records from 09/2017 document a prescription at discharge for metoprolol ) (4) CHF (congestive heart failure) Code(s): I50.9 - Heart failure, unspecified Status: Acute Plan: History of CHF documented, no documented ejection fraction No Clinical signs or symptoms consistent with CHF exacerbation Continue home medication Bumex 0.5 mg p.o. daily (5) GERD (gastroesophageal reflux disease) Code(s): K21.9 - Gastro-esophageal reflux disease without esophagitis Status: Acute Plan: Chronic history of GERD No evidence of GI bleed or hemorrhage at this time, continue to follow CBC Continue home medication PPI daily (6) Hypothyroidism Code(s): E03.9 - Hypothyroidism, unspecified Status: Acute Plan: TSH low Hold levothyroxine home medication for now (7) DVT prophylaxis Status: Acute Plan: SCDs only Rule out GI bleed - Assessment and Plan 87-year-old female, past medical history of pacer placement, CHF, hypertension, hypothyroidism, presents for altered mental status of unknown timeframe. Patient is here for placement purposes and to rule out alternative causes of delirium/cognitive impairment. Discussed Condition With: Dr. Jeremy Duong (1) Altered mental status Qualifiers: Altered mental status type: unspecified Qualified Code(s): R41.82 - Altered mental status, unspecified
[2017-09-29] MEDS ORDERED: Bisacodyl 10 MG Supp RECTAL PRN (19:24)
[2017-09-29] MEDS: Metoprolol Tartrate 25 MG Tablet PO SCH (20:58)
[2017-09-29 23:12] LABS: Hematocrit 33.7 % (35.0-46.0); Hemoglobin 10.9 gm/dL (11.6-15.3); Mean Corpuscular HGB Conc 32.4 % (32.0-36.0); Mean Corpuscular Hemoglobin 27.1 pg (27.0-34.0); Mean Corpuscular Volume 83.6 fL (80.0-100.0); Mean Platelet Volume 8.2 fL (7.0-11.0); Platelet Count 215 th/mm3 (150-450); Red Blood Count 4.03 mil/mm3 (4.00-5.30); Red Cell Distribution Width 15.1 % (11.6-17.2); White Blood Count 7.6 th/mm3 (4.0-11.0)
[2017-09-29 23:22] LABS: Magnesium 2.1 mg/dL (1.5-2.5); Phosphorus 3.5 mg/dL (2.5-4.9)
[2017-09-30] MEDS ORDERED: QUEtiapine 25 MG Tablet PO ONE (02:16)
[2017-09-30 07:29] LABS: Baso % (Auto) 0.7 % (0.0-2.0); Eos % (Auto) 0.6 % (0.0-4.0); Hematocrit 30.7 % (35.0-46.0); Hemoglobin 10.1 gm/dL (11.6-15.3); Lymph # (Auto) 0.7 th/mm3 (1.0-4.8); Lymph % (Auto) 12.5 % (9.0-44.0); Mean Corpuscular HGB Conc 32.9 % (32.0-36.0); Mean Corpuscular Hemoglobin 27.9 pg (27.0-34.0); Mean Platelet Volume 8.1 fL (7.0-11.0); Mono # (Auto) 0.3 th/mm3 (0.0-0.9); Mono % (Auto) 5.8 % (0.0-8.0); Neut # (Auto) 4.5 th/mm3 (1.8-7.7); Neut % (Auto) 80.4 % (16.0-70.0); Platelet Count 195 th/mm3 (150-450); Red Blood Count 3.61 mil/mm3 (4.00-5.30); Red Cell Distribution Width 15.3 % (11.6-17.2); White Blood Count 5.7 th/mm3 (4.0-11.0)
[2017-09-30 07:42] LABS: Alanine Aminotransferase 14 U/L (10-53); Albumin 3.3 g/dL (3.4-5.0); Anion Gap 6 meq/L (5-15); Aspartate Aminotransferase 16 U/L (15-37); Blood Urea Nitrogen 15 mg/dL (7-18); Calcium 8.7 mg/dL (8.5-10.1); Carbon Dioxide 26.7 meq/L (21.0-32.0); Chloride 108 meq/L (98-107); Glomerular Filtration Rate 62 mL/min (>89); Glucose,Random 91 mg/dL (74-106); Potassium 4.4 meq/L (3.5-5.1); Sodium 141 meq/L (136-145)
[2017-09-30 07:45] LABS: Alkaline Phosphatase 101 U/L (45-117); Total Protein 6.7 g/dL (6.4-8.2)
[2017-09-30] MEDS: Metoprolol Tartrate 25 MG Tablet PO SCH ×3 (08:47→18:54)
[2017-09-30] MEDS ORDERED: dilTIAZem CD 240 MG Capsule PO SCH (09:00)
--- NOTE | 2017-09-30 11:01 | P.HPFP ---
History of Present Illness Primary Care Physician: John Sandoval MD History of Present Illness: 87-year-old female, past medical history of CHF, pacer placement, hypertension, thyroid disorder, presented under Souza act from doctor's office where she was deemed incapable of driving home and caring for herself due to her severe dementia. DCF was contacted and is involved in the case, and most of the history is obtained from the ED physician who spoke with EMS and the doctor's note and the police Souza act form. Apparently the neighbors were primarily caring for this elderly woman until she has seemed to decompensate over time. Doctor became concerned when she was presenting with severe memory loss after having driven to the doctor's office herself. There are no caretakers or family members present to assist in the history taking. When the patient is asked how she got here she does explain that she went to the doctor's office for regular visit and she was shocked when they put her in a vehicle and took her here. "They forced me here practically. He knew something was not working well and I have to figure out what it was. I needed a new prescription."The patient continues to talk very circumferentially cannot tell a clear story. During her conversation she forgets what she is talking about and starts laughing. On review of systems she denies all, however she does admit to having a small amount of blood come out of her rectum overnight 3 days ago. However this was not independently witnessed. Denies any chest pain/shortness of breath. Denies any fever/chills. No acute events. She was reportedly ambulating all over the emergency department yesterday. She evidently became more confused overnight. She put on her high heels and began to walk and then subsequently fell without hitting her head. This morning she remains completely confused only oriented to her name and even searching for her last name. - Diagnosis (1) Altered mental status (2) Blood per rectum (3) Hypertension (4) CHF (congestive heart failure) (5) GERD (gastroesophageal reflux disease) (6) Hypothyroidism (7) DVT prophylaxis Inpatient Certification: I certify that the inpatient services were ordered in accordance with Medicare regulations governing the order. This includes certification that hospital inpatient services are reasonable and necessary and in the case of services not specified as inpatient-only under 42 CFR 419.22(n), that they are appropriately provided as inpatient services in accordance to with the 2-midnight benchmark under 43 CFR 412.3(e) Review of Systems unobtainable due to mental condition PMFSH - History History Provided By: Patient, Medical Record, Law Enforcement - Medical History Medical History: Medical History (Last Reviewed 09/29/17 @ 20:53 by Paola Samson MD, R2) Cardiac pacemaker Congestive heart failure (CHF) Dementia GERD (gastroesophageal reflux disease) Hypercholesteremia Hypertension Hypothyroidism Surgical history unknown - Tobacco History Second Hand Smoke Exposure: No Tobacco Use In Past 30 Days: No Smoking Status: Never smoker - Alcohol History How Often Do You Have a Drink Containing Alcohol: Never - Substance Use History Substance History: No History of Abuse - Travel History Recent Travel in the [place] Within the Last 8 Weeks: No Recent Travel Out of the Country Within the Last 8 Weeks: No - Immunization History Tetanus Immunization: Unsure Hx Influenza Vaccine This Season: Unable to Assess Medications and Allergies Active Medications: Active Medications Al Hydroxide/Mg Hydroxide (Milk Of Magnesia Liq) 30 ml PO Q12H PRN PRN Reason: Mild Constipation Bisacodyl (Dulcolax Supp) 10 mg RECTAL DAILY PRN PRN Reason: SEVERE CONSITIPATION Bumetanide (Bumex) 0.5 mg PO DAILY [facility] Last Admin: 09/30/17 08:46 Dose: 0.5 mg Donepezil HCl (Aricept) 5 mg PO DAILY [facility] Last Admin: 09/30/17 10:06 Dose: 5 mg Lactulose (Lactulose Liq) 30 ml PO DAILY PRN PRN Reason: SEVERE CONSITIPATION Memantine (Namenda) 10 mg PO BID [facility] Last Admin: 09/30/17 10:06 Dose: 10 mg Metoprolol Tartrate (Lopressor) 75 mg PO TID [facility] Last Admin: 09/30/17 08:47 Dose: Not Given Pantoprazole Sodium (Protonix) 40 mg PO DAILY [facility] Last Admin: 09/30/17 08:46 Dose: 40 mg Potassium Chloride (K-Dur) 20 meq PO DAILY [facility] Last Admin: 09/30/17 08:46 Dose: 20 meq Sennosides (Senokot) 17.2 mg PO Q12H PRN PRN Reason: Moderate Constipation Allergies Allergy/AdvReac Type Severity Reaction Status Date / Time methylprednisolone Allergy Unknown unknown Verified 09/29/17 13:46 metoprolol Allergy Unknown unknown Verified 09/29/17 13:46 milk Allergy Unknown unknown Verified 09/29/17 13:46 shellfish derived Allergy Unknown unknown Verified 09/29/17 13:46 warfarin Allergy Unknown unknown Verified 09/29/17 13:46 Home Medications Medication Instructions Recorded Confirmed Type bumetanide 0.5 mg PO DAILY 09/29/17 09/29/17 History cyclosporine [Restasis] 1 drp OPHTHALMIC (EYE) Q12H 09/29/17 09/29/17 History diltiazem HCl [DILT-XR] 240 mg PO DAILY 09/29/17 09/29/17 History donepezil 5 mg PO DAILY 09/29/17 09/29/17 History levothyroxine 50 mcg PO DAILY 09/29/17 09/29/17 History memantine 10 mg PO BID 09/29/17 09/29/17 History metoprolol tartrate 75 mg PO TID 09/29/17 09/29/17 History pantoprazole 40 mg PO DAILY 09/29/17 09/29/17 History potassium chloride 20 meq PO DAILY 09/29/17 09/29/17 History pravastatin 40 mg PO HS 09/29/17 09/29/17 History quetiapine 25 mg PO BID 09/29/17 09/29/17 History Exam Vital signs: Vital Signs 09/29/17 13:56 09/29/17 18:04 09/29/17 18:51 Temperature 98.4 F Pulse Rate 70 70 Respiratory Rate 20 23 Blood Pressure 199/88 H 202/86 H 171/80 H Pulse Oximetry 99 99 09/29/17 19:38 09/30/17 00:00 09/30/17 04:03 Temperature 98.2 F 97.4 F L Pulse Rate 70 70 70 Respiratory Rate 16 17 20 Blood Pressure 171/80 H 142/67 H 120/96 H Pulse Oximetry 98 97 09/30/17 07:45 09/30/17 08:00 Temperature 96.3 F L Pulse Rate 70 69 Respiratory Rate 20 Blood Pressure 117/57 L Pulse Oximetry 96 Intake & Output 09/29/17 09/30/17 09/30/17 18:59 06:59 18:59 Intake Total 120 / 120 Balance 120 / 120 Weight 58.967 kg 58.97 kg Intake: Oral 120 / 120 Other: # Voids 2 Weight On Admission 58.967 kg - Constitutional no acute distress, thin, cooperative - Routine HEENT Exam Head: Present: normocephalic, atraumatic. Absent: cushingoid faces, facial swelling Eye: Present: EOMI, PERRL. Absent: nystagmus, proptosis ENT: Present: mucous membranes moist - Routine Neck Exam Present: supple, full ROM, trachea midline - Routine Chest/Breast/Axilla Exam Chest wall: Present: pacemaker. Absent: tenderness, mass, chest tube - Routine Respiratory Exam Present: CTA bilaterally. Absent: accessory muscle use, prolonged expiratory phase, rales, respiratory distress - Routine Cardiovascular Exam Present: RRR. Absent: bradycardia, tachycardia, irregular rhythm, irregularly irregular - Routine Abdominal Exam Present: soft, normoactive bowel sounds, surgical scars. Absent: tenderness, distended, rebound, guarding, wound, drain, ostomy - Routine Extremities Exam Present: full ROM. Absent: cyanosis, clubbing, edema, calf tenderness, palpable cord, tenderness, pallor, extremity cold to touch - Routine Skin Exam Present: intact, dry, warm. Absent: pallor, mottling, petechiae, jaundice - Routine Neurological Exam Present: alert, moving all extremities, normal tone. Absent: oriented X3, sensory deficit, motor deficit Results - Labs Result diagrams: 09/30/17 06:50 09/30/17 06:40 Abnormal lab results 09/29/17 09/29/17 09/29/17 Range/Units 14:50 14:50 22:06 RBC (4.00-5.30) mil/mm3 Hgb 10.9 L (11.6-15.3) gm/dL Hct 33.7 L (35.0-46.0) % Neut % (Auto) (16.0-70.0) % Lymph # (Auto) (1.0-4.8) th/mm3 Chloride 109 H (98-107) meq/L Estimated GFR 55 L (>89) mL/min Troponin I Less than 0.02 L (0.02-0.05) ng/mL Albumin (3.4-5.0) g/dL TSH 0.301 L (0.358-3.740) uIU/mL Acetaminophen (10.0-30.0) mcg/mL 0709/30/17 09/30/17 Range/Units 22:06 06:40 06:50 RBC 3.61 L (4.00-5.30) mil/mm3 Hgb 10.1 L (11.6-15.3) gm/dL Hct 30.7 L (35.0-46.0) % Neut % (Auto) 80.4 H (16.0-70.0) % Lymph # (Auto) 0.7 L (1.0-4.8) th/mm3 Chloride 108 H (98-107) meq/L Estimated GFR 62 L (>89) mL/min Troponin I (0.02-0.05) ng/mL Albumin 3.3 L (3.4-5.0) g/dL TSH (0.358-3.740) uIU/mL Acetaminophen Less than 2.0 L (10.0-30.0) mcg/mL Short CBC 09/29/17 09/29/17 09/30/17 Range/Units 14:50 22:06 06:50 WBC 5.8 7.6 5.7 (4.0-11.0) th/mm3 Hgb 11.7 10.9 L 10.1 L (11.6-15.3) gm/dL Hct 36.3 33.7 L 30.7 L (35.0-46.0) % Plt Count 235 215 195 (150-450) th/mm3 BMP 09/29/17 09/30/17 14:50 06:40 Sodium 144 141 Potassium 4.2 4.4 Chloride 109 H 108 H Carbon Dioxide 24.4 26.7 BUN 16 15 Creatinine 0.96 0.87 Calcium 8.9 8.7 Cardiac Enzymes 09/29/17 Range/Units 14:50 Total Creatine Kinase 143 (26-192) U/L CK-MB (CK-2) 2.5 (0.5-3.6) ng/mL Troponin I Less than 0.02 L (0.02-0.05) ng/mL Liver Function 09/29/17 09/30/17 Range/Units 14:50 06:40 Total Bilirubin 0.7 0.9 (0.2-1.0) mg/dL AST 26 16 (15-37) U/L ALT 17 14 (10-53) U/L Alkaline Phosphatase 116 101 (45-117) U/L Albumin 3.6 3.3 L (3.4-5.0) g/dL Urine 09/29/17 Range/Units 14:55 Urine Color Yellow (Yellw/Straw) Urine Clarity Clear (Clear) Urine pH 6.0 (5.0-8.5) Ur Specific [place] 1.009 (1.002-1.035) Urine Protein Negative (Neg-Trace) mg/dL Urine Glucose (UA) Negative (Negative) mg/dL - Imaging Impressions Chest X-Ray 09/29/17 14:04 CONCLUSION: No acute cardiopulmonary disease. Head CT 09/29/17 14:04 CONCLUSION: 1. No definite acute finding is identified. There is a focal area of high density measuring 5 mm in the right parafalcine location in the right frontal lobe in the high convexity. Since this was partially present on the a prior examination from 2016 it is extremely unlikely to represent acute blood products. However, it is more prominent than the 2016 study so suggest attention to this at follow-up imaging. 2. Otherwise, stable examination with mild generalized atrophy and mild chronic periventricular white matter change. Caprini VTE Risk Assessment Caprini VTE Risk Assessment: No/Low Risk (score <= 1) Caprini Risk Assessment Model: Point Value = 1 Point Value = 2 Point Value = 3 Point Value = 5 Age 41-60 Minor surgery BMI > 25 kg/m2 Swollen legs Varicose veins or History of unexplained or recurrent spontaneous Oral contraceptives or hormone replacement Sepsis (< 1 month) Serious lung disease, including pneumonia (< 1 month) Abnormal pulmonary function Acute myocardial infarction Congestive heart failure (< 1 month) History of inflammatory bowel disease Medical patient at bed rest Age 61-74 Arthroscopic surgery Major open surgery (> 45 min) Laparoscopic surgery (> 45 min) Malignancy Confined to bed (> 72 hours) Immobilizing plaster cast Central venous access Age >= 75 History of VTE Family history of VTE Factor V Leiden Prothrombin [id number] Lupus anticoagulant Anticardiolipin antibodies Elevated serum homocysteine Heparin-induced thrombocytopenia Other congenital or acquired thrombophilia Stroke (< 1 month) Elective arthroplasty Hip, pelvis, or leg fracture Acute spinal cord injury (< 1 month) Prophylaxis Regimen: Total Risk Factor Score Risk Level Prophylaxis Regimen 0-1 Low Early ambulation 2 Moderate Order ONE of the following: *Sequential Compression Device (SCD) *Heparin 5000 units SQ BID 3-4 Higher Order ONE of the following medications: *Heparin 5000 units SQ TID *Enoxaparin/Lovenox 40 mg SQ daily (WT < 150 kg, CrCl > 30 mL/min) *Enoxaparin/Lovenox 30 mg SQ daily (WT < 150 kg, CrCl > 10-29 mL/min) *Enoxaparin/Lovenox 30 mg SQ BID (WT < 150 kg, CrCl > 30 mL/min) AND/OR *Sequential Compression Device (SCD) 5 or more Highest Order ONE of the following medications: *Heparin 5000 units SQ TID (Preferred with Epidurals) *Enoxaparin/Lovenox 40 mg SQ daily (WT < 150 kg, CrCl > 30 mL/min) *Enoxaparin/Lovenox 30 mg SQ daily (WT < 150 kg, CrCl > 10-29 mL/min) *Enoxaparin/Lovenox 30 mg SQ BID (WT < 150 kg, CrCl > 30 mL/min) AND *Sequential Compression Device (SCD) Assessment and Plan - Assessment (1) Altered mental status Code(s): R41.82 - Altered mental status, unspecified Status: Acute Plan: Differential includes chronic dementia versus delirium versus electrolyte abnormality versus cranial lesion versus hypertension induced delirium Afebrile, not meeting sepsis criteria CBC normal, CMP normal, UA normal, troponin negative Admitted for observation Follow-up EKG, troponin negative Telemetry Neurochecks every 4 hours, vital signs every 4 hours Follow-up MMA, acetaminophen level, ammonia, NARINDER, ESR, magnesium and phosphorus , RPR, B12 Followed-up labs in a.m. Follow-up EEG Follow-up psychiatry Recs -Continue workup for causes of delirium -Hold in observation, will likely lift Souza act medically cleared -she may benefit from Psychiatric expertise in help adjusting her medications. Right now she was driving and sundowning and falling. It is absolutely unclear if she is taking any of her medications and/or if they need to be adjusted. Follow-up with case management for placement -Per notes, patient previously was in a SNF, we are uncertain why she has moved to independent living. Unfortunately we do not have any current decision maker or family member that we have been able to speak to. Will call both her primary care doctor to get more history and hopefully contacts and also her pharmacy to see if she has been taking any of her medications. (2) Blood per rectum Code(s): K62.5 - Hemorrhage of anus and rectum Status: Acute Plan: 1 episode 3 days ago per patient, poor historian, 1 cm x 1 cm blood clot Likely hemorrhoid versus chronic GI bleed versus diverticulosis Initial hemoglobin normal, follow-up hemoglobin in 6 hours Follow-up occult blood screen Her medical team had a extended debate about what to do regarding this problem. Considering how poor a historian this patient is, she may not have had any bleeding at all. Right now we have no one who can make decisions and agree to any procedures. A GI consult was considered but likely they will want to scope her with endoscopy and colonoscopy. Based on her mental state, she would be unable to drink the prep. If she develops brisk bleeding or her H&H drops precipitously then GI will need to be consulted. For now we will just heme test her stools and watch her hemoglobin and hematocrit. Consideration can be given to starting Pepcid Zantac or similar medicine just to cover her her and prevent ulcers while in the hospital. (3) Hypertension Code(s): I10 - Essential (primary) hypertension Status: Acute Plan: 199/88, 202/86 in ED Status post 60 mg diltiazem p.o. 1 with improvement of BP to 171/80 Continue home medications as listed from [facility] 1 week ago -diltiazem 240 mg held due to low blood pressures. -Continue metoprolol 75 mg 3 times daily if tolerated, resumed ( we have noted the allergy listed in [facility] from 2008, however the [facility] records from 09/2017 document a prescription at discharge for metoprolol ) but her blood pressure was too low so now her medications will be cut back. Based on her dementia it is unclear that she took any of her medications or what exactly she has been consuming so her pharmacy will be called to clarify this issue. (4) CHF (congestive heart failure) Code(s): I50.9 - Heart failure, unspecified Status: Acute Plan: History of CHF documented, no documented ejection fraction No Clinical signs or symptoms consistent with CHF exacerbation Continue home medication Bumex 0.5 mg p.o. daily (5) GERD (gastroesophageal reflux disease) Code(s): K21.9 - Gastro-esophageal reflux disease without esophagitis Status: Acute Plan: Chronic history of GERD No evidence of GI bleed or hemorrhage at this time, continue to follow CBC Continue home medication PPI daily (6) Hypothyroidism Code(s): E03.9 - Hypothyroidism, unspecified Status: Acute Plan: TSH low Hold levothyroxine home medication for now She may have been taking her medication incorrectly. (7) DVT prophylaxis Status: Acute Plan: SCDs only Rule out GI bleed - Assessment and Plan 87-year-old female, past medical history of pacer placement, CHF, hypertension, hypothyroidism, presents for altered mental status of unknown timeframe. Patient is here for placement purposes and to rule out alternative causes of delirium/cognitive impairment. As she is Souza acted, will consider if psychiatry could accept her as a patient. She may or may not have been taking her anti-dementia medicines as well as other medications and could definitely use psychiatry for help in maximizing her function. She has been having behavioral problems even here in the hospital with donning her high heels and running in the saucedo until she fell. H&P: Quality - VTE Deep Vein Thrombosis/Pulmonary Embolism Present on Admission: No (1) Altered mental status Qualifiers: Altered mental status type: unspecified Qualified Code(s): R41.82 - Altered mental status, unspecified (4) CHF (congestive heart failure) Qualifiers: Heart failure type: unspecified Heart failure chronicity: chronic Qualified Code(s): I50.9 - Heart failure, unspecified (5) GERD (gastroesophageal reflux disease) Qualifiers: Esophagitis presence: esophagitis presence not specified Qualified Code(s): K21.9 - Gastro-esophageal reflux disease without esophagitis (6) Hypothyroidism Qualifiers: Hypothyroidism type: acquired Qualified Code(s): E03.9 - Hypothyroidism, unspecified
--- NOTE | 2017-09-30 16:05 | P.PNADD ---
Addendum to Inpatient Note Reason for Addendum: Additional Documentation Additional information: Attempted to obtain further information regarding patient's medical conditions, baseline mental status, living situation and medications by contacting PCP listed in the patient's chart Dr. John Sandoval at [phone]. However, was informed patient has not seen Dr. Sandoval since 2011 and she does not receive any medications from him. The office did not have any records of her current primary care provider. Also attempted to contact patient's friend Evelyn who is noted in her chart without any success. Lastly contacted patient' s sister Dania twice without any response and left voice message with callback number.
--- NOTE | 2017-09-30 16:53 | P.PNPSY ---
Subjective Remarks: Patient seen and examined. Chart reviewed. Case discussed with nurse. Per nursing, patient remains quite confused. She is noted to frequently ask to go to the bathroom whereupon she will sit on the toilet without voiding usually. Once she is returned to her bed, patient will again ask to go to the bathroom. She did trip and fall without injury overnight, reportedly secondary to confusion about location. Otherwise, patient has presented no real behavioral problem. On my exam, patient remains quite confused. She does recognize me from our encounter yesterday but otherwise is oriented to person only. She denies any SI/HI/AVH. She is calm and cooperative with interview. She is asking once again to go to the bathroom, which request I have relayed to the nurse. No physical complaints otherwise. Wants to go home. Vital Signs Temp Pulse Resp BP Pulse Ox 09/30/17 12:00 97.3 F L 70 16 133/61 99 09/30/17 11:46 70 09/30/17 08:00 69 09/30/17 07:45 96.3 F L 70 20 117/57 L 96 09/30/17 04:03 97.4 F L 70 20 120/96 H 09/30/17 00:00 98.2 F 70 17 142/67 H 97 09/29/17 19:38 70 16 171/80 H 98 09/29/17 18:51 171/80 H 09/29/17 18:04 70 23 202/86 H 99 Intake and Output 09/30/17 09/30/17 09/30/17 06:59 14:59 22:59 Intake Total 120 / 120 Balance 120 / 120 Intake: Oral 120 / 120 Other: # Voids 2 Weight 58.97 kg Weight On Admission 58.967 kg Laboratory Results - last 24 hr 09/29/17 09/29/17 09/29/17 14:50 14:50 14:50 WBC RBC Hgb Hct MCV MCH MCHC RDW Plt Count MPV Neut % (Auto) Lymph % (Auto) [place] % (Auto) Eos % (Auto) Baso % (Auto) Neut # (Auto) Lymph # (Auto) [place] # (Auto) Eos # (Auto) Baso # (Auto) WBC Differential Differential Comment ESR Sodium 144 Potassium 4.2 Chloride 109 H Carbon Dioxide 24.4 Anion Gap 11 BUN 16 Creatinine 0.96 Estimated GFR 55 L Random Glucose 77 Calcium 8.9 Phosphorus Magnesium 2.2 Total Bilirubin 0.7 AST 26 ALT 17 Alkaline Phosphatase 116 Ammonia Total Creatine Kinase 143 CK-MB (CK-2) 2.5 Troponin I Less than 0.02 L Total Protein 7.5 Albumin 3.6 Vitamin B12 TSH 0.301 L Free T4 1.08 Acetaminophen Serum Alcohol Less than 3 RPR 09/29/17 09/29/17 09/29/17 22:06 22:06 22:06 WBC 7.6 RBC 4.03 Hgb 10.9 L Hct 33.7 L MCV 83.6 MCH 27.1 MCHC 32.4 RDW 15.1 Plt Count 215 MPV 8.2 Neut % (Auto) Lymph % (Auto) [place] % (Auto) Eos % (Auto) Baso % (Auto) Neut # (Auto) Lymph # (Auto) [place] # (Auto) Eos # (Auto) Baso # (Auto) WBC Differential Differential Comment ESR Sodium Potassium Chloride Carbon Dioxide Anion Gap BUN Creatinine Estimated GFR Random Glucose Calcium Phosphorus 3.5 Magnesium 2.1 Total Bilirubin AST ALT Alkaline Phosphatase Ammonia 15 Total Creatine Kinase CK-MB (CK-2) Troponin I Total Protein Albumin Vitamin B12 TSH Free T4 Acetaminophen Serum Alcohol RPR 09/29/17 09/29/17 09/29/17 22:06 22:06 22:06 WBC RBC Hgb Hct MCV MCH MCHC RDW Plt Count MPV Neut % (Auto) Lymph % (Auto) [place] % (Auto) Eos % (Auto) Baso % (Auto) Neut # (Auto) Lymph # (Auto) [place] # (Auto) Eos # (Auto) Baso # (Auto) WBC Differential Differential Comment ESR Sodium Potassium Chloride Carbon Dioxide Anion Gap BUN Creatinine Estimated GFR Random Glucose Calcium Phosphorus Magnesium Total Bilirubin AST ALT Alkaline Phosphatase Ammonia Total Creatine Kinase CK-MB (CK-2) Troponin I Total Protein Albumin Vitamin B12 240 TSH Free T4 Acetaminophen Less than 2.0 L Serum Alcohol RPR Nonreactive 09/29/17 09/30/17 09/30/17 22:06 06:40 06:40 WBC RBC Hgb Hct MCV MCH MCHC RDW Plt Count MPV Neut % (Auto) Lymph % (Auto) [place] % (Auto) Eos % (Auto) Baso % (Auto) Neut # (Auto) Lymph # (Auto) [place] # (Auto) Eos # (Auto) Baso # (Auto) WBC Differential Differential Comment ESR 20 Sodium 141 Potassium 4.4 Chloride 108 H Carbon Dioxide 26.7 Anion Gap 6 BUN 15 Creatinine 0.87 Estimated GFR 62 L Random Glucose 91 Calcium 8.7 Phosphorus Magnesium Total Bilirubin 0.9 AST 16 ALT 14 Alkaline Phosphatase 101 Ammonia 17 Total Creatine Kinase CK-MB (CK-2) Troponin I Total Protein 6.7 D Albumin 3.3 L Vitamin B12 TSH Free T4 Acetaminophen Serum Alcohol RPR 09/30/17 09/30/17 06:40 06:50 WBC 5.7 RBC 3.61 L Hgb 10.1 L Hct 30.7 L MCV 85.0 MCH 27.9 MCHC 32.9 RDW 15.3 Plt Count 195 MPV 8.1 Neut % (Auto) 80.4 H Lymph % (Auto) 12.5 [place] % (Auto) 5.8 Eos % (Auto) 0.6 Baso % (Auto) 0.7 Neut # (Auto) 4.5 Lymph # (Auto) 0.7 L [place] # (Auto) 0.3 Eos # (Auto) 0.0 Baso # (Auto) 0.0 WBC Differential . Differential Comment Auto diff final ESR Sodium Potassium Chloride Carbon Dioxide Anion Gap BUN Creatinine Estimated GFR Random Glucose Calcium Phosphorus Magnesium Total Bilirubin AST ALT Alkaline Phosphatase Ammonia Total Creatine Kinase CK-MB (CK-2) Troponin I Total Protein Albumin Vitamin B12 TSH Free T4 1.09 Acetaminophen Serum Alcohol RPR Labs reviewed. B12 lower end of normal, and I note follow up MMA has been ordered. NARINDER is pending. No obvious organic cause for patient's cognitive impairment otherwise. EKG reveals ventricular pacing, QTc 460ms. Review of Systems unobtainable due to mental condition (Limitation: Poor historian) Mental Status Examination Appearance: Other (Fair) Consciousness: Alert Orientation: Person (Person only) Motor Activity: Other (No motor abnormalities noted today) Speech: Hesitant Language: Other (Remains rambling) Fund of Knowledge: Inadequate Attention and Concentration: Easily distracted Memory: Impaired Mood: Appropriate Affect: Appropriate Thought Process & Associations: Circumstantial Thought Content: Other (Ongoing poverty of thought) Hallucination Type: None Delusion Type: None Suicidal Ideation: No Suicidal Plan: No Suicidal Intention: No Homicidal Ideation: No Homicidal Plan: No Homicidal Intention: No Insight: Poor Judgment: Poor Assessment and Plan - Assessment (1) Dementia without behavioral disturbance Code(s): F03.90 - Unspecified dementia without behavioral disturbance Status: Suspected - Plan Plan: Patient remains quite confused. BPs are better controlled today and workup for organic causes of cognitive impairment unrevealing so far. Follow up outstanding labs. I note Aricept and Namenda have been started. As underlying dementing illness seems likely in this patient, agree with continuing these agents so long as they are well tolerated. No indication for antipsychotic as there is not significant evidence of behavioral disturbance. Consider non-pharmacologic management strategies such as scheduled voiding to manage patient's recurrent requests to void. I will hold off on lifting the BA today, but in the absence of behavioral disturbance this can likely be lifted at my next visit with patient. Patient lacks capacity to make disposition decisions as a consequence of cognitive impairment, and I note primary team is appropriately trying to identify surrogate decision maker. Consider PT/OT eval to help identify discharge needs. Patient would almost certainly benefit from placement. Case d/w Dr. Shrestha and RN. I will plan to follow up no later than or sooner as needed. Justification for Continued Inpatient Stay: Per primary team.
--- NOTE | 2017-09-30 20:59 | MG ---
cc: Artur Blake MD DATE OF STUDY: 09/30/2017. ELECTROENCEPHALOGRAM RECORD NUMBER: [id number]. DESCRIPTION: 6-7 Hz activity, 20-40 microvolts in the frontal channels. Good EEG variability and reactivity. Myogenic artifact occurring off and on. Occasional bursts of 1-2 Hz delta activity and bilateral temporal slowing, suggestive of drowsy state. Reduced driving with photic stimulation. Single lead EKG showing sinus rhythm. INTERPRETATION: Mild encephalopathy. Clinical correlation. MD XAVIER Hayes/MICHAEL , 08:48 PM , 08:58 PM
--- NOTE | 2017-09-30 21:02 | ECG ---
Date Performed: 09/29/2017 Time Performed: 16:38:00 PTAGE: 87 years EKG: ELECTRONIC VENTRICULAR PACEMAKER ABNORMAL RHYTHM ECG Compare to prior pacemaker changes are new DOCTOR: Kirby Ziegler Interpretating Date/Time 09/30/2017 21:01:32
[2017-10-01 05:47] LABS: Hematocrit 33.3 % (35.0-46.0); Hemoglobin 10.9 gm/dL (11.6-15.3); Mean Corpuscular HGB Conc 32.8 % (32.0-36.0); Mean Corpuscular Hemoglobin 27.9 pg (27.0-34.0); Mean Corpuscular Volume 85.1 fL (80.0-100.0); Mean Platelet Volume 8.9 fL (7.0-11.0); Platelet Count 162 th/mm3 (150-450); Red Blood Count 3.92 mil/mm3 (4.00-5.30); Red Cell Distribution Width 15.3 % (11.6-17.2); White Blood Count 5.6 th/mm3 (4.0-11.0)
[2017-10-01] MEDS: Metoprolol Tartrate 25 MG Tablet PO SCH ×3 (09:31→17:39)
--- NOTE | 2017-10-01 15:50 | P.PNFP ---
Subjective Interval history: Patient seen and examined at bedside this morning. Nurse reports patient required reorientation overnight as she tried to get up from bed to go home. This morning patient reports she is doing fine like to go home. No issues with eating denies any chest pain, shortness of breath, abdominal pain, dizziness, or nausea or vomiting. Was able to get in contact with her neighbor Danelle whom reports the patient's mental status had been declining. She it is able to do basic activities of daily living at home such as bathing, taking out the trash and feeding herself. However she is concerned for her safety due to patient's inability to drive, go shopping for herself, cook or take medications appropriately. In the past patient has had home health ordered however she refused to allow home health to help with her care. Neighbor also reports that recently patient has needed help with managing her bills. Neighbor also mentioned that based on her communication with the patient Ms. Holloway would prefer to be in an assisted living facility based. Danelle reports patient is not , has no children or close family members in the area. Her only family member is her sister Dania who lives in [place] and has been estranged from the patient for a long time <Evangelina Shrestha - 10/01/17 15:50> Results - Labs Result diagrams: 10/01/17 05:15 09/30/17 06:40 <Tessy Jimenez - 10/04/17 13:30> Abnormal lab results 10/01/17 Range/Units 05:15 RBC 3.92 L (4.00-5.30) mil/mm3 Hgb 10.9 L (11.6-15.3) gm/dL Hct 33.3 L (35.0-46.0) % Short CBC 10/01/17 Range/Units 05:15 WBC 5.6 (4.0-11.0) th/mm3 Hgb 10.9 L (11.6-15.3) gm/dL Hct 33.3 L (35.0-46.0) % Plt Count 162 (150-450) th/mm3 <Evangelina Shrestha - 10/01/17 15:50> Physical Exam Vital signs: Vital Signs 10/03/17 16:00 10/03/17 20:52 10/03/17 20:55 Temperature 97.6 F 98.5 F Pulse Rate 71 70 Respiratory Rate 20 16 Blood Pressure 150/63 H 134/64 Pulse Oximetry 99 10/04/17 00:00 10/04/17 04:00 10/04/17 08:00 Temperature 97.8 F 98.3 F 97.5 F L Pulse Rate 70 72 70 Respiratory Rate 16 20 16 Blood Pressure 128/64 110/55 L 151/81 H Pulse Oximetry 97 95 99 10/04/17 08:45 10/04/17 12:00 Temperature 97.7 F Pulse Rate 70 70 Respiratory Rate 16 Blood Pressure 157/73 H Pulse Oximetry 97 Intake & Output 10/03/17 10/04/17 10/04/17 18:59 06:59 18:59 Intake Total 1440 / 1440 Balance 1440 / 1440 Intake: Oral 1440 / 1440 Other: # Voids 2 Date of Last Bowel Movement 09/30/17 10/03/17 # Bowel Movements 1 <Tessy Jimenez M - 10/04/17 13:30> Vital Signs 09/30/17 16:00 09/30/17 20:00 09/30/17 23:32 Temperature 97.8 F 98.2 F 98.8 F Pulse Rate 70 69 70 Respiratory Rate 16 17 17 Blood Pressure 148/66 H 138/64 148/68 H Pulse Oximetry 98 97 96 10/01/17 08:00 10/01/17 12:00 Temperature 97.8 F 98.6 F Pulse Rate 70 70 Respiratory Rate 18 16 Blood Pressure 175/76 H 163/74 H Pulse Oximetry 96 98 Intake & Output 09/30/17 10/01/17 10/01/17 18:59 06:59 18:59 Intake Total 320 / 320 Balance 320 / 320 Intake: Oral 320 / 320 Other: # Voids 7 2 Date of Last Bowel Movement 09/30/17 # Bowel Movements 1 <Calzado,Evangelina D - 10/01/17 15:50> - Constitutional no acute distress <Calzado,Evangelina D - 10/01/17 15:50> - Routine HEENT Exam Head: Present: normocephalic <Calzado,Evangelina D - 10/01/17 15:50> Eye: Present: EOMI, PERRL <Calzado,Evangelina D - 10/01/17 15:50> ENT: Present: mucous membranes moist <Evangelina Shrestha 10/01/17 15:50> - Routine Neck Exam Present: supple, full ROM. Absent: JVD <Evangelina Shrestha 10/01/17 15:50> - Routine Respiratory Exam Present: CTA bilaterally. Absent: accessory muscle use <Evangelina Shrestha 15:50> - Routine Cardiovascular Exam Present: RRR, S1, S2. Absent: murmur, gallop, rubs <Evangelina Shrestha 15:50> - Routine Abdominal Exam Present: soft, normoactive bowel sounds. Absent: tenderness <Evangelina Shrestha 10/01/17 15:50> - Routine Extremities Exam Present: full ROM, pulses intact, normal capillary refill. Absent: cyanosis, clubbing, edema <Evangelina Shrestha 10/01/17 15:50> - Routine Skin Exam Present: intact <Evangelina Shrestha 10/01/17 15:50> - Routine Neurological Exam Present: alert (Alert and oriented 2 (patient is alert oriented to herself and is aware that she is in the hospital)), CN II-XII intact <Evangelina Shrestha 15:50> Assessment and Plan - Assessment (1) Altered mental status Code(s): R41.82 - Altered mental status, unspecified Status: Chronic (2) Nausea without vomiting Code(s): R11.0 - Nausea Status: Acute (3) Hypertension Code(s): I10 - Essential (primary) hypertension Status: Acute (4) CHF (congestive heart failure) Code(s): I50.9 - Heart failure, unspecified Status: Chronic (5) GERD (gastroesophageal reflux disease) Code(s): K21.9 - Gastro-esophageal reflux disease without esophagitis Status: Acute (6) Hypothyroidism Code(s): E03.9 - Hypothyroidism, unspecified Status: Acute (7) DVT prophylaxis Status: Acute (8) Nutrition, metabolism, and development symptoms Code(s): R63.8 - Other symptoms and signs concerning food and fluid intake Status: Acute <Tessy Jimenez - 10/04/17 13:30> (1) Altered mental status Code(s): R41.82 - Altered mental status, unspecified Status: Chronic Plan: Differential includes chronic dementia versus delirium versus electrolyte abnormality versus cranial lesion versus hypertension induced delirium Afebrile, not meeting sepsis criteria CBC normal, CMP normal, UA normal, troponin negative Admitted for observation Follow-up EKG, troponin negative Telemetry EEG: Mild encephalopathy Patient is medically stable Alert and oriented 2 (self and location) Follow-up psychiatry Recs Discussed patient case with Dr. Ashby yesterday, patient does not meet inpatient psych criteria. Souza act will be lifted today, medically cleared. Avoid antipsychotics Approach with reorientation Follow-up with case management for placement -Spoke to case management today and was informed that patient will be evaluated by [facility] for assisted living facility placement. Patient is being followed by [facility] ([place]- casework manager [phone] and DCF foundry supervisor for case Alicia Reese [phone]) Spoke to neighbor Danelle and was informed patient has continued to decline in mental status. According to Danelle patient follows with pcp Dr. Aparicio (office #: ), attempted to get in contact with medical office to review patient's medication however no response but left message with callback number. Decision maker will be her sister Dania contact information can be found in patient's chart. (2) Hypertension Code(s): I10 - Essential (primary) hypertension Status: Acute Plan: Patient with blood pressures ranging 140-170s over 70s Metoprolol medication decreased to 75mg 3 times daily Diltiazem medication resumed at decreased dose of 120 mg daily Continue to monitor blood pressure Goal to keep diastolic blood pressure greater than or equal to 65 Continue metoprolol 75 mg 3 times daily if tolerated, resumed ( we have noted the allergy listed in [facility] from 2008, however the [facility] records from 09/2017 document a prescription at discharge for metoprolol ) Based on her dementia it is unclear that she took any of her medications or what exactly she has been consuming so her pharmacy will be called to clarify this issue. (3) CHF (congestive heart failure) Code(s): I50.9 - Heart failure, unspecified Status: Chronic Plan: History of CHF documented, no documented ejection fraction No Clinical signs or symptoms consistent with CHF exacerbation Attempt to cut back medication and maintain systolic blood pressure greater than 65, Bumex was discontinued Potassium within normal limits supplement was discontinued as well (4) GERD (gastroesophageal reflux disease) Code(s): K21.9 - Gastro-esophageal reflux disease without esophagitis Status: Acute Plan: Chronic history of GERD No evidence of GI bleed or hemorrhage at this time Continue home medication PPI daily (5) Hypothyroidism Code(s): E03.9 - Hypothyroidism, unspecified Status: Acute Plan: TSH low Hold levothyroxine home medication for now She may have been taking her medication incorrectly. (6) DVT prophylaxis Status: Acute Plan: SCDs only (7) Nutrition, metabolism, and development symptoms Code(s): R63.8 - Other symptoms and signs concerning food and fluid intake Status: Acute Plan: Fluids: Not indicated at this time Electrolytes: Within normal limits, replete as needed Nutrition: Regular diet DVT prophylaxis: SCDs Disposition: Patient will be evaluated by sales donor recruitment representative from [place] for assisted-living facility placement and DCF will be following the case. Anticipate discharged tomorrow once placement has been coordinated. (8) Blood per rectum Code(s): K62.5 - Hemorrhage of anus and rectum Status: Resolved Plan: 1 episode 3 days ago per patient, poor historian, 1 cm x 1 cm blood clot Likely hemorrhoid versus chronic GI bleed versus diverticulosis Patient hemoglobin stable Stool occult blood negative Patient is hemodynamically stable <Evangelina Shrestha - 10/01/17 15:15> - Attending Attestation The exam, history, and the medical decision-making described in the above note were completed with the assistance of the resident physician. I reviewed and agree with the findings presented. I attest that I had a [id number] encounter with the patient on the same day, and personally performed and documented my assessment and findings in the medical record. <Tessy Jimenez - 10/04/17 13:30> <Evangelina Shrestha - Last Filed: 10/01/17 15:15> (1) Altered mental status Qualifiers: Altered mental status type: unspecified Qualified Code(s): R41.82 - Altered mental status, unspecified (3) CHF (congestive heart failure) Qualifiers: Heart failure type: unspecified Heart failure chronicity: chronic Qualified Code(s): I50.9 - Heart failure, unspecified (4) GERD (gastroesophageal reflux disease) Qualifiers: Esophagitis presence: esophagitis presence not specified Qualified Code(s): K21.9 - Gastro-esophageal reflux disease without esophagitis (5) Hypothyroidism Qualifiers: Hypothyroidism type: acquired Qualified Code(s): E03.9 - Hypothyroidism, unspecified <Tessy Jimenez M - Last Filed: 10/04/17 13:30> (1) Altered mental status Qualifiers: Altered mental status type: unspecified Qualified Code(s): R41.82 - Altered mental status, unspecified (3) Hypertension Qualifiers: Hypertension type: essential hypertension Qualified Code(s): I10 - Essential (primary) hypertension (4) CHF (congestive heart failure) Qualifiers: Heart failure type: unspecified Heart failure chronicity: chronic Qualified Code(s): I50.9 - Heart failure, unspecified (5) GERD (gastroesophageal reflux disease) Qualifiers: Esophagitis presence: esophagitis presence not specified Qualified Code(s): K21.9 - Gastro-esophageal reflux disease without esophagitis (6) Hypothyroidism Qualifiers: Hypothyroidism type: acquired Qualified Code(s): E03.9 - Hypothyroidism, unspecified <Evangelina Shrestha - Last Filed: 10/01/17 15:15> (1) Altered mental status Qualifiers: Altered mental status type: unspecified Qualified Code(s): R41.82 - Altered mental status, unspecified (3) CHF (congestive heart failure) Qualifiers: Heart failure type: unspecified Heart failure chronicity: chronic Qualified Code(s): I50.9 - Heart failure, unspecified (4) GERD (gastroesophageal reflux disease) Qualifiers: Esophagitis presence: esophagitis presence not specified Qualified Code(s): K21.9 - Gastro-esophageal reflux disease without esophagitis (5) Hypothyroidism Qualifiers: Hypothyroidism type: acquired Qualified Code(s): E03.9 - Hypothyroidism, unspecified <Tessy Jimenez - Last Filed: 10/04/17 13:30> (1) Altered mental status Qualifiers: Altered mental status type: unspecified Qualified Code(s): R41.82 - Altered mental status, unspecified (3) Hypertension Qualifiers: Hypertension type: essential hypertension Qualified Code(s): I10 - Essential (primary) hypertension (4) CHF (congestive heart failure) Qualifiers: Heart failure type: unspecified Heart failure chronicity: chronic Qualified Code(s): I50.9 - Heart failure, unspecified (5) GERD (gastroesophageal reflux disease) Qualifiers: Esophagitis presence: esophagitis presence not specified Qualified Code(s): K21.9 - Gastro-esophageal reflux disease without esophagitis (6) Hypothyroidism Qualifiers: Hypothyroidism type: acquired Qualified Code(s): E03.9 - Hypothyroidism, unspecified
[2017-10-01] MEDS: dilTIAZem CD 120 MG Capsule PO SCH (16:44)
[2017-10-02] MEDS: Metoprolol Tartrate 25 MG Tablet PO SCH ×3 (09:37→17:16)
[2017-10-02] MEDS: dilTIAZem CD 120 MG Capsule PO SCH (09:38)
--- NOTE | 2017-10-02 11:57 | P.PNFP ---
Subjective Interval history: Ms Holloway was very confused today. She was not oriented to her name she had forgotten her last name. She did not know where she was she did not know the day the date the year anything. Her neighbor was visiting and asked if this patient could go back home. I explained that DCF was involved and she would need to be placed on 4 her own good as she could kill herself or someone else driving around. The patient has a negative review of systems as she is not cognitively doing well. Results - Labs Result diagrams: 10/01/17 05:15 09/30/17 06:40 Physical Exam Vital signs: Vital Signs 10/01/17 12:00 10/01/17 16:00 10/01/17 17:38 Temperature 98.6 F 97.8 F Pulse Rate 70 70 70 Respiratory Rate 16 16 18 Blood Pressure 163/74 H 170/76 H 158/67 H Pulse Oximetry 98 98 98 10/01/17 19:36 10/01/17 20:00 10/02/17 08:00 Temperature 98.6 F 97.6 F Pulse Rate 70 72 70 Respiratory Rate 16 16 Blood Pressure 137/61 136/64 Pulse Oximetry 98 97 Intake & Output 10/01/17 10/02/17 10/02/17 18:59 06:59 18:59 Other: # Voids 6 1 Date of Last Bowel Movement 09/30/17 - Constitutional no acute distress, thin, cooperative - Routine HEENT Exam Head: Present: normocephalic, atraumatic. Absent: cushingoid faces, laceration , hematoma, scalp tenderness, facial swelling Eye: Present: EOMI, PERRL. Absent: scleral injection, periorbital swelling, periorbital tenderness ENT: Present: external ear normal. Absent: septal deviation - Routine Neck Exam Present: trachea midline. Absent: trauma, meningismus - Routine Respiratory Exam Present: CTA bilaterally. Absent: accessory muscle use, patient mechanically ventilated, decreased breath sounds, prolonged expiratory phase, rales, respiratory distress, rhonchi, wheezes, crackles - Routine Cardiovascular Exam Present: RRR. Absent: murmur, gallop, rubs, bradycardia, tachycardia, irregular rhythm, irregularly irregular - Routine Abdominal Exam Present: soft. Absent: tenderness, distended, rebound - Routine Skin Exam Present: intact, dry. Absent: cyanosis, erythema, mottling, petechiae, wounds, rash - Routine Neurological Exam Present: alert, altered mental status, moving all extremities, normal tone. Absent: oriented X3, sensory deficit, motor deficit, nystagmus - Detailed Neurological Exam: Coma Scale Eye Opening: Spontaneous Verbal Response: Confused Motor Response: Obey commands [place] Coma Scale Total: 14 - Routine Psychiatric Exam Present: normal affect. Absent: normal thought process, good insight, good judgment Assessment and Plan - Assessment (1) Altered mental status Code(s): R41.82 - Altered mental status, unspecified Status: Chronic Plan: Differential includes chronic dementia versus delirium versus electrolyte abnormality versus cranial lesion versus hypertension induced delirium Afebrile, not meeting sepsis criteria CBC normal, CMP normal, UA normal, troponin negative Based on a negative workup and history of slow but continued mental decline this seems a classic case of Alzheimer's. Admitted for observation Followed-up EKG, troponin negative Telemetry EEG: Mild encephalopathy Patient is medically stable Alert and oriented 0 today Follow-up psychiatry Recs. Psychiatry recommends placement. She did not have any psychiatric history. Discussed patient case with Dr. Ashby yesterday, patient does not meet inpatient psych criteria. Souza act will be lifted today, medically cleared. Avoid antipsychotics Approach with reorientation Follow-up with case management for placement -Spoke to case management today and was informed that patient will be evaluated by [facility] for assisted living facility placement. Patient is being followed by [facility] (Dontrell- heel caser [phone] and [facility] supervisor grading for case Alicia Reese [phone]) Spoke to neighbor Danelle and was informed patient has continued to decline in mental status over time. According to Danelle patient follows with pcp Dr. Aparicio (office #: ), attempted to get in contact with medical office to review patient's medication however no response but left message with callback number. Decision maker will be her sister Dania contact information can be found in patient's chart. (2) Hypertension Code(s): I10 - Essential (primary) hypertension Status: Acute Plan: Patient with blood pressures ranging 140-170s over 70s Metoprolol medication decreased to 75mg 3 times daily Diltiazem medication resumed at decreased dose of 120 mg daily can increase her medicine if tolerated and needed. Continue to monitor blood pressure Goal to keep diastolic blood pressure greater than or equal to 65 at her age Continue metoprolol 75 mg 3 times daily if tolerated, resumed ( we have noted the allergy listed in [employer] from 2008, however the [facility] records from 09/2017 document a prescription at discharge for metoprolol ) Based on her dementia it is unclear that she took any of her medications or what exactly she has been consuming so her pharmacy will be called to clarify this issue. (3) CHF (congestive heart failure) Code(s): I50.9 - Heart failure, unspecified Status: Chronic Plan: History of CHF documented, no documented ejection fraction No Clinical signs or symptoms consistent with CHF exacerbation Attempt to cut back medication and maintain systolic blood pressure greater than 65, Bumex was discontinued Potassium within normal limits supplement was discontinued as well (4) GERD (gastroesophageal reflux disease) Code(s): K21.9 - Gastro-esophageal reflux disease without esophagitis Status: Acute Plan: Chronic history of GERD No evidence of GI bleed or hemorrhage at this time Continue home medication PPI daily (5) Hypothyroidism Code(s): E03.9 - Hypothyroidism, unspecified Status: Acute Plan: TSH low Hold levothyroxine home medication for now She may have been taking her medication incorrectly. (6) DVT prophylaxis Status: Acute Plan: SCDs only (7) Nutrition, metabolism, and development symptoms Code(s): R63.8 - Other symptoms and signs concerning food and fluid intake Status: Acute Plan: Fluids: Not indicated at this time Electrolytes: Within normal limits, replete as needed Nutrition: Regular diet DVT prophylaxis: SCDs Disposition: Patient will be evaluated by customer relations representative from [place] for assisted-living facility placement and DCF will be following the case. Anticipate discharged today once placement has been coordinated. - Assessment and Plan 87-year-old female, past medical history of pacer placement, CHF, hypertension, hypothyroidism, presents for altered mental status of unknown timeframe. Patient is here for placement purposes and to rule out alternative causes of delirium/cognitive impairment. As she is Souza acted, will consider if psychiatry could accept her as a patient. She may or may not have been taking her anti-dementia medicines as well as other medications and could definitely use psychiatry for help in maximizing her function. She has been having behavioral problems even here in the hospital with donning her high heels and running in the saucedo until she fell. (1) Altered mental status Qualifiers: Altered mental status type: unspecified Qualified Code(s): R41.82 - Altered mental status, unspecified (2) Hypertension Qualifiers: Hypertension type: essential hypertension Qualified Code(s): I10 - Essential (primary) hypertension (3) CHF (congestive heart failure) Qualifiers: Heart failure type: unspecified Heart failure chronicity: chronic Qualified Code(s): I50.9 - Heart failure, unspecified (4) GERD (gastroesophageal reflux disease) Qualifiers: Esophagitis presence: esophagitis presence not specified Qualified Code(s): K21.9 - Gastro-esophageal reflux disease without esophagitis (5) Hypothyroidism Qualifiers: Hypothyroidism type: acquired Qualified Code(s): E03.9 - Hypothyroidism, unspecified
--- NOTE | 2017-10-02 17:42 | P.PNPSY ---
Subjective Remarks: Patient seen and examined. Chart reviewed. Case discussed with nursing staff. Per nurse, patient has been no behavioral problem in the last several days. She did grasp nurse's wrist somewhat forcefully on Friday but otherwise has been calm, if confused. Patient remains confused on my exam today. She is oriented to person only. She is quite forgetful and exhibits word-finding difficulties. No mood or psychotic symptoms. Denies AVH. Says that she wants to go home, says she likes tending her garden. Presently calm and pleasant. No evident medication side effects. No physical complaints. Vital Signs Temp Pulse Resp BP Pulse Ox 10/02/17 16:00 97.6 F 75 16 138/59 L 97 10/02/17 11:56 97.5 F L 71 16 146/66 H 98 10/02/17 08:00 97.6 F 70 16 136/64 97 10/01/17 20:00 72 10/01/17 19:36 98.6 F 70 16 137/61 98 10/01/17 17:38 70 18 158/67 H 98 Intake and Output 10/02/17 10/02/17 10/02/17 06:59 14:59 22:59 Other: # Voids 1 6 # Bowel Movements 1 Labs reviewed. MMA level pending, but otherwise no obvious medical cause for confusional state. EEG reveals mild encephalopathy. EKG VPaced with QTc 460ms. PT/OT input noted. Review of Systems unobtainable due to mental condition (Limitation: poor historian) Mental Status Examination Appearance: Other (remains fair) Consciousness: Alert Orientation: Person (Person only) Motor Activity: Other (No abnormal motor movements noted) Speech: Hesitant Language: Other (Remains somewhat rambling) Fund of Knowledge: Inadequate Attention and Concentration: Easily distracted Memory: Impaired Mood: Appropriate Affect: Appropriate Thought Process & Associations: Circumstantial Thought Content: Other (Poverty of thought) Hallucination Type: None Delusion Type: None Suicidal Ideation: No Suicidal Plan: No Suicidal Intention: No Homicidal Ideation: No Homicidal Plan: No Homicidal Intention: No Insight: Poor Judgment: Poor Assessment and Plan - Assessment (1) Dementia without behavioral disturbance Code(s): F03.90 - Unspecified dementia without behavioral disturbance Status: Suspected - Plan Plan: No evidence of significant behavioral disturbance despite extended observation. Weighing relevant factors, I staff mechanical engineer patient does not meet the Souza Act criteria. I have lifted the Souza Act. However, as previously noted, patient does not have capacity to make disposition decisions and a surrogate decision maker should be utilized. Case d/w RN. I will plan to follow up as needed. Please call or page [phone] with questions. Justification for Continued Inpatient Stay: Per primary team.
[2017-10-03] MEDS: Metoprolol Tartrate 25 MG Tablet PO SCH ×3 (10:17→18:33)
[2017-10-03] MEDS: dilTIAZem CD 120 MG Capsule PO SCH (10:17)
--- NOTE | 2017-10-03 10:42 | P.PNFP ---
Subjective Interval history: Patient seen and examined this morning at bedside. No acute events overnight. Patient reports she feels well. No complaints. She states she would like to go home. <Evangelina Shrestha D - 10/03/17 17:54> Results - Labs Result diagrams: 10/01/17 05:15 09/30/17 06:40 <Tessy Jimenez - 10/04/17 13:31> Abnormal lab results 09/29/17 Range/Units 22:06 Methylmalonic Acid 0.59 H (<=0.40) nmol/mL <Kateryna Shresthajorge Morataya - 10/03/17 10:41> Physical Exam Vital signs: Vital Signs 10/03/17 16:00 10/03/17 20:52 10/03/17 20:55 Temperature 97.6 F 98.5 F Pulse Rate 71 70 Respiratory Rate 20 16 Blood Pressure 150/63 H 134/64 Pulse Oximetry 99 10/04/17 00:00 10/04/17 04:00 10/04/17 08:00 Temperature 97.8 F 98.3 F 97.5 F L Pulse Rate 70 72 70 Respiratory Rate 16 20 16 Blood Pressure 128/64 110/55 L 151/81 H Pulse Oximetry 97 95 99 10/04/17 08:45 10/04/17 12:00 Temperature 97.7 F Pulse Rate 70 70 Respiratory Rate 16 Blood Pressure 157/73 H Pulse Oximetry 97 Intake & Output 10/03/17 10/04/17 10/04/17 18:59 06:59 18:59 Intake Total 1440 / 1440 Balance 1440 / 1440 Intake: Oral 1440 / 1440 Other: # Voids 2 Date of Last Bowel Movement 09/30/17 10/03/17 # Bowel Movements 1 <Tessy Jimenez M - 10/04/17 13:31> Vital Signs 10/02/17 11:56 10/02/17 16:00 10/02/17 20:00 Temperature 97.5 F L 97.6 F 98 F Pulse Rate 71 75 70 Respiratory Rate 16 16 16 Blood Pressure 146/66 H 138/59 L 131/64 Pulse Oximetry 98 97 98 10/02/17 23:41 10/03/17 04:00 10/03/17 08:00 Temperature 98.3 F 98.1 F 97.7 F Pulse Rate 70 70 72 Respiratory Rate 16 16 17 Blood Pressure 123/60 141/65 H 142/65 H Pulse Oximetry 97 98 97 Intake & Output 10/02/17 10/03/17 10/03/17 18:59 06:59 18:59 Intake Total 140 / 140 Balance 140 / 140 Intake: Oral 140 / 140 Other: # Voids 6 1 Date of Last Bowel Movement 09/30/17 # Bowel Movements 1 <Evangelina Shrestha 10/03/17 10:41> - Constitutional no acute distress <Evangelina Shrestha D 10/03/17 17:54> - Routine HEENT Exam Head: Present: normocephalic <Evangelina Shrestha 10/03/17 17:54> Eye: Present: EOMI, PERRL <Evangelian Shrestha 10/03/17 17:54> ENT: Present: mucous membranes moist <Evangelina Shrestha 10/03/17 17:54> - Routine Neck Exam Present: supple, full ROM. Absent: JVD <Evangelina Shrestha 10/03/17 17:54> - Routine Respiratory Exam Present: CTA bilaterally. Absent: accessory muscle use <Evangelina Shrestha 17:54> - Routine Cardiovascular Exam Present: RRR, S1, S2. Absent: murmur, gallop, rubs <Evangelina Shrestha 17:54> - Routine Abdominal Exam Present: soft, normoactive bowel sounds. Absent: tenderness, distended, rebound , guarding <HenriettaEvangelina Rafia 10/03/17 17:54> - Routine Extremities Exam Present: full ROM, pulses intact, normal capillary refill. Absent: cyanosis, clubbing, edema, calf tenderness <Evangelina Shrestha 10/03/17 17:54> - Routine Skin Exam Present: intact <HenriettaEvangelina 10/03/17 17:54> - Routine Neurological Exam Present: alert (AAOx2) <HenriettaEvangelina Rafia 10/03/17 17:54> - Routine Psychiatric Exam Present: normal affect <HenriettaEvangelina Rafia 10/03/17 17:54> Assessment and Plan - Assessment (1) Altered mental status Code(s): R41.82 - Altered mental status, unspecified Status: Chronic (2) Nausea without vomiting Code(s): R11.0 - Nausea Status: Acute (3) Hypertension Code(s): I10 - Essential (primary) hypertension Status: Acute (4) CHF (congestive heart failure) Code(s): I50.9 - Heart failure, unspecified Status: Chronic (5) GERD (gastroesophageal reflux disease) Code(s): K21.9 - Gastro-esophageal reflux disease without esophagitis Status: Acute (6) Hypothyroidism Code(s): E03.9 - Hypothyroidism, unspecified Status: Acute (7) DVT prophylaxis Status: Acute (8) Nutrition, metabolism, and development symptoms Code(s): R63.8 - Other symptoms and signs concerning food and fluid intake Status: Acute <Tessy Jimenez - 10/04/17 13:31> (1) Altered mental status Code(s): R41.82 - Altered mental status, unspecified Status: Chronic Plan: Differential includes chronic dementia versus delirium versus electrolyte abnormality versus cranial lesion versus hypertension induced delirium Afebrile, not meeting sepsis criteria CBC normal, CMP normal, UA normal, troponin negative Based on a negative workup and history of slow but continued mental decline this seems a classic case of Alzheimer's. Admitted for observation Followed-up EKG, troponin negative Telemetry EEG: Mild encephalopathy Patient is medically stable Alert and oriented 2 today Follow-up psychiatry Recs. Psychiatry recommends placement. She did not have any psychiatric history. Discussed patient case with Dr. Ashby, patient does not meet inpatient psych criteria. Souza act will be lifted, medically cleared. Avoid antipsychotics Approach sundowning with reorientation Follow-up with case management for placement -Spoke to case management and was informed that patient will be evaluated by [facility] for assisted living facility placement. Patient is being followed by [facility] (Dontrell- briefcase sewer [phone] and DCF telephone order supervisor for case Alicia Reese [phone]) Spoke to neighbor Danelle and was informed patient has continued to decline in mental status over time. According to Danelle patient follows with pcp Dr. Aparicio (office #: [phone]), attempted to get in contact with medical office to review patient's medication however no response but left message with callback number. Decision maker will be her sister Dania contact information can be found in patient's chart. (2) Hypertension Code(s): I10 - Essential (primary) hypertension Status: Acute Plan: Patient with blood pressures ranging 140-170s over 70s Metoprolol medication decreased to 75mg 3 times daily Diltiazem medication resumed at decreased dose of 120 mg daily can increase her medicine if tolerated and needed. Continue to monitor blood pressure Goal to keep diastolic blood pressure greater than or equal to 65 at her age Continue metoprolol 75 mg 3 times daily if tolerated, resumed ( we have noted the allergy listed in [employer] from 2008, however the [facility] records from 09/2017 document a prescription at discharge for metoprolol ) Based on her dementia it is unclear that she took any of her medications or what exactly she has been consuming so her pharmacy will be called to clarify this issue. (3) CHF (congestive heart failure) Code(s): I50.9 - Heart failure, unspecified Status: Chronic Plan: History of CHF documented, no documented ejection fraction No Clinical signs or symptoms consistent with CHF exacerbation Attempt to cut back medication and maintain systolic blood pressure greater than 65, Bumex was discontinued Potassium within normal limits supplement was discontinued as well (4) GERD (gastroesophageal reflux disease) Code(s): K21.9 - Gastro-esophageal reflux disease without esophagitis Status: Acute Plan: Chronic history of GERD No evidence of GI bleed or hemorrhage at this time Continue home medication PPI daily (5) Hypothyroidism Code(s): E03.9 - Hypothyroidism, unspecified Status: Acute Plan: TSH low Hold levothyroxine home medication for now She may have been taking her medication incorrectly. (6) DVT prophylaxis Status: Acute Plan: SCDs only (7) Nutrition, metabolism, and development symptoms Code(s): R63.8 - Other symptoms and signs concerning food and fluid intake Status: Acute Plan: Fluids: Not indicated at this time Electrolytes: Within normal limits, replete as needed Nutrition: Regular diet DVT prophylaxis: SCDs Disposition: Patient will be evaluated by pharmaceutical representative from [facility] for assisted-living facility placement and DCF will be following the case. Anticipate discharged once placement has been coordinated. <Evangelina Shrestha - 10/03/17 17:48> - Assessment and Plan 87-year-old female, past medical history of pacer placement, CHF, hypertension, hypothyroidism, presents for altered mental status of unknown timeframe. Patient is here for placement purposes and to rule out alternative causes of delirium/cognitive impairment. As she is Souza acted, will consider if psychiatry could accept her as a patient. She may or may not have been taking her anti-dementia medicines as well as other medications and could definitely use psychiatry for help in maximizing her function. She has been having behavioral problems even here in the hospital with donning her high heels and running in the saucedo until she fell. <Evangelina Shrestha - 10/03/17 10:41> - Attending Attestation The exam, history, and the medical decision-making described in the above note were completed with the assistance of the resident physician. I reviewed and agree with the findings presented. I attest that I had a [id number] encounter with the patient on the same day, and personally performed and documented my assessment and findings in the medical record. Agree with placement where she will not continue to try to drive. <Tessy Jimenez - 10/04/17 13:31> <Evangelina Shrestha D - Last Filed: 10/03/17 17:48> (1) Altered mental status Qualifiers: Altered mental status type: unspecified Qualified Code(s): R41.82 - Altered mental status, unspecified (2) Hypertension Qualifiers: Hypertension type: essential hypertension Qualified Code(s): I10 - Essential (primary) hypertension (3) CHF (congestive heart failure) Qualifiers: Heart failure type: unspecified Heart failure chronicity: chronic Qualified Code(s): I50.9 - Heart failure, unspecified (4) GERD (gastroesophageal reflux disease) Qualifiers: Esophagitis presence: esophagitis presence not specified Qualified Code(s): K21.9 - Gastro-esophageal reflux disease without esophagitis (5) Hypothyroidism Qualifiers: Hypothyroidism type: acquired Qualified Code(s): E03.9 - Hypothyroidism, unspecified <Tessy Jimenez M - Last Filed: 10/04/17 13:31> (1) Altered mental status Qualifiers: Altered mental status type: unspecified Qualified Code(s): R41.82 - Altered mental status, unspecified (3) Hypertension Qualifiers: Hypertension type: essential hypertension Qualified Code(s): I10 - Essential (primary) hypertension (4) CHF (congestive heart failure) Qualifiers: Heart failure type: unspecified Heart failure chronicity: chronic Qualified Code(s): I50.9 - Heart failure, unspecified (5) GERD (gastroesophageal reflux disease) Qualifiers: Esophagitis presence: esophagitis presence not specified Qualified Code(s): K21.9 - Gastro-esophageal reflux disease without esophagitis (6) Hypothyroidism Qualifiers: Hypothyroidism type: acquired Qualified Code(s): E03.9 - Hypothyroidism, unspecified <Evangelina Shrestha - Last Filed: 10/03/17 17:48> (1) Altered mental status Qualifiers: Altered mental status type: unspecified Qualified Code(s): R41.82 - Altered mental status, unspecified (2) Hypertension Qualifiers: Hypertension type: essential hypertension Qualified Code(s): I10 - Essential (primary) hypertension (3) CHF (congestive heart failure) Qualifiers: Heart failure type: unspecified Heart failure chronicity: chronic Qualified Code(s): I50.9 - Heart failure, unspecified (4) GERD (gastroesophageal reflux disease) Qualifiers: Esophagitis presence: esophagitis presence not specified Qualified Code(s): K21.9 - Gastro-esophageal reflux disease without esophagitis (5) Hypothyroidism Qualifiers: Hypothyroidism type: acquired Qualified Code(s): E03.9 - Hypothyroidism, unspecified <Tessy Jimenez - Last Filed: 10/04/17 13:31> (1) Altered mental status Qualifiers: Altered mental status type: unspecified Qualified Code(s): R41.82 - Altered mental status, unspecified (3) Hypertension Qualifiers: Hypertension type: essential hypertension Qualified Code(s): I10 - Essential (primary) hypertension (4) CHF (congestive heart failure) Qualifiers: Heart failure type: unspecified Heart failure chronicity: chronic Qualified Code(s): I50.9 - Heart failure, unspecified (5) GERD (gastroesophageal reflux disease) Qualifiers: Esophagitis presence: esophagitis presence not specified Qualified Code(s): K21.9 - Gastro-esophageal reflux disease without esophagitis (6) Hypothyroidism Qualifiers: Hypothyroidism type: acquired Qualified Code(s): E03.9 - Hypothyroidism, unspecified
[2017-10-04] MEDS: dilTIAZem CD 120 MG Capsule PO SCH (08:30)
[2017-10-04] MEDS: Metoprolol Tartrate 25 MG Tablet PO SCH ×3 (09:52→19:53)
--- NOTE | 2017-10-04 12:45 | P.PNFP ---
Subjective Interval history: Patient seen and examined this morning by medical team. No acute events overnight per report. Patient reports that she dislikes the hospital food and it is making her nauseous. During interview she continues to be nauseous with multiple episodes of eructation. Otherwise she has no acute complaints. During orientation questions she is able to repeat her name, however otherwise is respond to where she is or what year we are in. She denies any fevers, chills, shortness of breath, chest pain, or calf tenderness. <Zach Story H - 10/04/17 12:44> Results - Labs Result diagrams: 10/01/17 05:15 09/30/17 06:40 <Tessy Jimenez M - 10/04/17 13:32> Physical Exam Vital signs: Vital Signs 10/03/17 16:00 10/03/17 20:52 10/03/17 20:55 Temperature 97.6 F 98.5 F Pulse Rate 71 70 Respiratory Rate 20 16 Blood Pressure 150/63 H 134/64 Pulse Oximetry 99 10/04/17 00:00 10/04/17 04:00 10/04/17 08:00 Temperature 97.8 F 98.3 F 97.5 F L Pulse Rate 70 72 70 Respiratory Rate 16 20 16 Blood Pressure 128/64 110/55 L 151/81 H Pulse Oximetry 97 95 99 10/04/17 08:45 10/04/17 12:00 Temperature 97.7 F Pulse Rate 70 70 Respiratory Rate 16 Blood Pressure 157/73 H Pulse Oximetry 97 Intake & Output 10/03/17 10/04/17 10/04/17 18:59 06:59 18:59 Intake Total 1440 / 1440 Balance 1440 / 1440 Intake: Oral 1440 / 1440 Other: # Voids 2 Date of Last Bowel Movement 09/30/17 10/03/17 # Bowel Movements 1 <Tessy Jimenez M - 10/04/17 13:32> Vital Signs 10/03/17 16:00 10/03/17 20:52 10/03/17 20:55 Temperature 97.6 F 98.5 F Pulse Rate 71 70 Respiratory Rate 20 16 Blood Pressure 150/63 H 134/64 Pulse Oximetry 99 10/04/17 00:00 10/04/17 04:00 10/04/17 08:00 Temperature 97.8 F 98.3 F 97.5 F L Pulse Rate 70 72 70 Respiratory Rate 16 20 16 Blood Pressure 128/64 110/55 L 151/81 H Pulse Oximetry 97 95 99 10/04/17 08:45 Temperature Pulse Rate 70 Respiratory Rate Blood Pressure Pulse Oximetry Intake & Output 10/03/17 10/04/17 10/04/17 18:59 06:59 18:59 Intake Total 1440 / 1440 Balance 1440 / 1440 Intake: Oral 1440 / 1440 Other: # Voids 2 Date of Last Bowel Movement 09/30/17 # Bowel Movements 1 <Zach Story - 10/04/17 12:44> Narrative: GENERAL: Thin appearing elderly female lying in bed in no SKIN: Warm and dry. No rash. HEENT: Atraumatic, normocephalic with extraocular motions intact. No rhinorrhea. No visible lymphadenopathy or jugulovenous distension appreciated. CARDIOVASCULAR: Regular rate and rhythm without obvious murmurs, gallops, or rubs. 2+ pulses in all four extremities. RESPIRATORY: Clear to anterior auscultation bilaterally with no crackles, wheezes, or rhonchi. No increased work of breathing. GASTROINTESTINAL: Abdomen soft, non-tender, nondistended with positive bowel sounds. No masses appreciated. MUSCULOSKELETAL: No cyanosis or edema. No calf tenderness. NEURO/PSYCH: Awake, alert, and oriented x1. Normal speech with intermittent stutter, poor judgement. Otherwise neurologically afocal. <Zach Story H - 10/04/17 12:44> Assessment and Plan - Assessment (1) Altered mental status Code(s): R41.82 - Altered mental status, unspecified Status: Chronic (2) Nausea without vomiting Code(s): R11.0 - Nausea Status: Acute (3) Hypertension Code(s): I10 - Essential (primary) hypertension Status: Acute (4) CHF (congestive heart failure) Code(s): I50.9 - Heart failure, unspecified Status: Chronic (5) GERD (gastroesophageal reflux disease) Code(s): K21.9 - Gastro-esophageal reflux disease without esophagitis Status: Acute (6) Hypothyroidism Code(s): E03.9 - Hypothyroidism, unspecified Status: Acute (7) DVT prophylaxis Status: Acute (8) Nutrition, metabolism, and development symptoms Code(s): R63.8 - Other symptoms and signs concerning food and fluid intake Status: Acute <Tessy Jimenez - 10/04/17 13:32> (1) Altered mental status Code(s): R41.82 - Altered mental status, unspecified Status: Chronic Plan: Differential includes chronic dementia versus delirium versus electrolyte abnormality versus cranial lesion versus hypertension induced delirium Afebrile, not meeting sepsis criteria CBC normal, CMP normal, UA normal, troponin negative Based on a negative workup and history of slow but continued mental decline this seems a classic case of Alzheimer's. Admitted for observation Followed-up EKG, troponin negative Telemetry EEG: Mild encephalopathy Patient is medically stable AAO 1 today Follow-up psychiatry Recs. Psychiatry recommends placement. She did not have any psychiatric history. Discussed patient case with Dr. Ashby, patient does not meet inpatient psych criteria. Souza act lifted, medically cleared. Avoid antipsychotics Approach sundowning with reorientation Follow-up with case management for placement -Spoke to case management and was informed that patient will be evaluated by [facility] for assisted living facility placement. The 1823 form has been completed and is on the patient's chart. Patient is being followed by [facility] (Dontrell- ed case manager [phone] and DCF quarry supervisor [employer] stone for case Alicia Reese [phone]) Spoke to neighbor Danelle and was informed patient has continued to decline in mental status over time. According to Danelle patient follows with pcp Dr. Aparicio (office #: ), attempted to get in contact with medical office to review patient's medication however no response but left message with callback number. Decision maker will be her sister Dania contact information can be found in patient's chart. (2) Nausea without vomiting Code(s): R11.0 - Nausea Status: Acute Plan: Patient complaining of nausea on 10/04/17 without episodes of vomiting -Zofran ordered as needed for nausea/ -Continue to monitor (3) Hypertension Code(s): I10 - Essential (primary) hypertension Status: Acute Plan: Patient with blood pressures ranging 140-170s over 70s Metoprolol medication decreased to 75mg 3 times daily (We have noted the allergy listed in [employer] from 2008, however the [facility] records from 09/2017 document a prescription at discharge for metoprolol ) Diltiazem medication resumed at decreased dose of 120 mg daily can increase her medicine if tolerated and needed. Continue to monitor blood pressure Goal to keep diastolic blood pressure greater than or equal to 65 at her age (4) CHF (congestive heart failure) Code(s): I50.9 - Heart failure, unspecified Status: Chronic Plan: History of CHF documented, no documented ejection fraction No Clinical signs or symptoms consistent with CHF exacerbation Attempt to cut back medication and maintain systolic blood pressure greater than 65, Bumex was discontinued Potassium within normal limits supplement was discontinued as well (5) GERD (gastroesophageal reflux disease) Code(s): K21.9 - Gastro-esophageal reflux disease without esophagitis Status: Acute Plan: Chronic history of GERD. No evidence of GI bleed or hemorrhage at this time. Continue home medication PPI daily. (6) Hypothyroidism Code(s): E03.9 - Hypothyroidism, unspecified Status: Acute Plan: TSH: low at 0.301 Free T4: normal at 1.08 Hold levothyroxine home medication for now She may have been taking her medication incorrectly. (7) DVT prophylaxis Status: Acute Plan: SCDs only. (8) Nutrition, metabolism, and development symptoms Code(s): R63.8 - Other symptoms and signs concerning food and fluid intake Status: Acute Plan: Fluids: Not indicated at this time. Electrolytes: Within normal limits, replete as needed. Nutrition: Regular diet. DVT prophylaxis: SCDs Disposition: Patient will be evaluated by group sales representative from [place] for assisted-living facility placement and DCF will be following the case. Anticipate discharged once placement has been coordinated. <Zach Story - 10/04/17 12:13> - Assessment and Plan 87-year-old female, past medical history of pacer placement, CHF, hypertension, hypothyroidism, presents for altered mental status of unknown timeframe. Patient is here for placement purposes and to rule out alternative causes of delirium/cognitive impairment. As she is Souza acted, will consider if psychiatry could accept her as a patient. She may or may not have been taking her anti-dementia medicines as well as other medications and could definitely use psychiatry for help in maximizing her function. She has been having behavioral problems even here in the hospital with donning her high heels and running in the saucedo until she fell <Zach Story H - 10/04/17 12:44> - Attending Attestation The exam, history, and the medical decision-making described in the above note were completed with the assistance of the resident physician. I reviewed and agree with the findings presented. I attest that I had a [id number] encounter with the patient on the same day, and personally performed and documented my assessment and findings in the medical record. Will continue to reevaluate her vomiting and if needed can consider starting IV fluids or further workup if warranted <Tessy Jimenez M - 10/04/17 13:32> <Zach Story - Last Filed: 10/04/17 12:13> (1) Altered mental status Qualifiers: Altered mental status type: unspecified Qualified Code(s): R41.82 - Altered mental status, unspecified (3) Hypertension Qualifiers: Hypertension type: essential hypertension Qualified Code(s): I10 - Essential (primary) hypertension (4) CHF (congestive heart failure) Qualifiers: Heart failure type: unspecified Heart failure chronicity: chronic Qualified Code(s): I50.9 - Heart failure, unspecified (5) GERD (gastroesophageal reflux disease) Qualifiers: Esophagitis presence: esophagitis presence not specified Qualified Code(s): K21.9 - Gastro-esophageal reflux disease without esophagitis (6) Hypothyroidism Qualifiers: Hypothyroidism type: acquired Qualified Code(s): E03.9 - Hypothyroidism, unspecified <Tessy Jimenez M - Last Filed: 10/04/17 13:32> (1) Altered mental status Qualifiers: Altered mental status type: unspecified Qualified Code(s): R41.82 - Altered mental status, unspecified (3) Hypertension Qualifiers: Hypertension type: essential hypertension Qualified Code(s): I10 - Essential (primary) hypertension (4) CHF (congestive heart failure) Qualifiers: Heart failure type: unspecified Heart failure chronicity: chronic Qualified Code(s): I50.9 - Heart failure, unspecified (5) GERD (gastroesophageal reflux disease) Qualifiers: Esophagitis presence: esophagitis presence not specified Qualified Code(s): K21.9 - Gastro-esophageal reflux disease without esophagitis (6) Hypothyroidism Qualifiers: Hypothyroidism type: acquired Qualified Code(s): E03.9 - Hypothyroidism, unspecified <Zach Story - Last Filed: 10/04/17 12:13> (1) Altered mental status Qualifiers: Altered mental status type: unspecified Qualified Code(s): R41.82 - Altered mental status, unspecified (3) Hypertension Qualifiers: Hypertension type: essential hypertension Qualified Code(s): I10 - Essential (primary) hypertension (4) CHF (congestive heart failure) Qualifiers: Heart failure type: unspecified Heart failure chronicity: chronic Qualified Code(s): I50.9 - Heart failure, unspecified (5) GERD (gastroesophageal reflux disease) Qualifiers: Esophagitis presence: esophagitis presence not specified Qualified Code(s): K21.9 - Gastro-esophageal reflux disease without esophagitis (6) Hypothyroidism Qualifiers: Hypothyroidism type: acquired Qualified Code(s): E03.9 - Hypothyroidism, unspecified <Tessy Jimenez M - Last Filed: 10/04/17 13:32> (1) Altered mental status Qualifiers: Altered mental status type: unspecified Qualified Code(s): R41.82 - Altered mental status, unspecified (3) Hypertension Qualifiers: Hypertension type: essential hypertension Qualified Code(s): I10 - Essential (primary) hypertension (4) CHF (congestive heart failure) Qualifiers: Heart failure type: unspecified Heart failure chronicity: chronic Qualified Code(s): I50.9 - Heart failure, unspecified (5) GERD (gastroesophageal reflux disease) Qualifiers: Esophagitis presence: esophagitis presence not specified Qualified Code(s): K21.9 - Gastro-esophageal reflux disease without esophagitis (6) Hypothyroidism Qualifiers: Hypothyroidism type: acquired Qualified Code(s): E03.9 - Hypothyroidism, unspecified
[2017-10-05] MEDS: Metoprolol Tartrate 25 MG Tablet PO SCH ×3 (08:26→18:36)
[2017-10-05] MEDS: dilTIAZem CD 120 MG Capsule PO SCH (08:27)
--- NOTE | 2017-10-05 10:23 | P.PNFP ---
Subjective Interval history: Ms Holloway is not happy here in the hospital and wants to go home right now today. She hates the hospital food. She complained of nausea but could not otherwise elaborate. She blames the food. When informed that the ''Law" in [place] through [facility] would not allow her to go home she said, "You're a sassy one." She denies any other problems except those related to food and wanting to leave. she denied pain or other problems. Results - Labs Result diagrams: 10/01/17 05:15 09/30/17 06:40 Physical Exam Vital signs: Vital Signs 10/04/17 12:00 10/04/17 16:00 10/04/17 19:36 Temperature 97.7 F 97.6 F 98 F Pulse Rate 70 70 71 Respiratory Rate 16 16 18 Blood Pressure 157/73 H 153/74 H 121/73 Pulse Oximetry 97 97 95 10/04/17 20:00 10/05/17 03:39 10/05/17 08:00 Temperature 97.6 F Pulse Rate 70 70 70 Respiratory Rate 18 Blood Pressure 145/65 H Pulse Oximetry 97 Intake & Output 10/04/17 10/05/17 10/05/17 18:59 06:59 18:59 Other: # Voids 4 2 Date of Last Bowel Movement 10/03/17 10/03/17 # Bowel Movements 0 - Constitutional no acute distress, thin - Routine HEENT Exam Head: Present: normocephalic, atraumatic. Absent: cushingoid faces, abrasion, laceration, hematoma Eye: Present: EOMI. Absent: periorbital ecchymosis, periorbital swelling, periorbital tenderness ENT: Present: external ear normal. Absent: mucous membranes dry, septal deviation - Routine Neck Exam Present: supple, full ROM, trachea midline - Routine Respiratory Exam Present: CTA bilaterally. Absent: accessory muscle use, decreased breath sounds , prolonged expiratory phase, respiratory distress - Routine Cardiovascular Exam Present: RRR. Absent: murmur, gallop, rubs - Routine Abdominal Exam Present: soft. Absent: distended, rebound, guarding, firm, rigid - Routine Extremities Exam Absent: cyanosis, clubbing, edema, full ROM, calf tenderness - Routine Skin Exam Present: intact, dry. Absent: mottling, petechiae - Routine Neurological Exam Present: alert, oriented X3. Absent: hemineglect - Routine Psychiatric Exam Absent: normal thought process Assessment and Plan - Assessment (1) Altered mental status Code(s): R41.82 - Altered mental status, unspecified Status: Chronic Plan: Differential includes chronic dementia versus delirium versus electrolyte abnormality versus cranial lesion versus hypertension induced delirium Afebrile, not meeting sepsis criteria CBC normal, CMP normal, UA normal, troponin negative Based on a negative workup and history of slow but continued mental decline this seems a classic case of Alzheimer's. Admitted for observation Followed-up EKG, troponin negative Telemetry EEG: Mild encephalopathy Patient is medically stable AAO 1 today Follow-up psychiatry Recs. Psychiatry recommends placement. She did not have any psychiatric history. Discussed patient case with Dr. Ashby, patient does not meet inpatient psych criteria. Souza act lifted, medically cleared. Avoid antipsychotics Approach sundowning with reorientation Follow-up with case management for placement -Spoke to case management and was informed that patient will be evaluated by [facility] for assisted living facility placement. The 1823 form has been completed and is on the patient's chart. Patient is being followed by [facility] (Dontrell- family service caseworker [phone] and DCF supervisor powdered sugar for case Alicia Reese [phone]) Spoke to neighbor Danelle and was informed patient has continued to decline in mental status over time. According to Danelle patient follows with pcp Dr. Aparicio (office #: [phone]), attempted to get in contact with medical office to review patient's medication however no response but left message with callback number. Decision maker will be her sister Dania contact information can be found in patient's chart. (2) Nausea without vomiting Code(s): R11.0 - Nausea Status: Acute Plan: Patient complaining of nausea on 10/04/17 without episodes of vomiting -Zofran ordered as needed for nausea/ -Continue to monitor (3) Hypertension Code(s): I10 - Essential (primary) hypertension Status: Acute Plan: Patient with blood pressures ranging 140-170s over 70s Metoprolol medication decreased to 75mg 3 times daily (We have noted the allergy listed in [employer] from 2008, however the [facility] records from 09/2017 document a prescription at discharge for metoprolol ) Diltiazem medication resumed at decreased dose of 120 mg daily can increase her medicine if tolerated and needed. Continue to monitor blood pressure Goal to keep diastolic blood pressure greater than or equal to 65 at her age (4) CHF (congestive heart failure) Code(s): I50.9 - Heart failure, unspecified Status: Chronic Plan: History of CHF documented, no documented ejection fraction No Clinical signs or symptoms consistent with CHF exacerbation Attempt to cut back medication and maintain systolic blood pressure greater than 65, Bumex was discontinued Potassium within normal limits supplement was discontinued as well (5) GERD (gastroesophageal reflux disease) Code(s): K21.9 - Gastro-esophageal reflux disease without esophagitis Status: Acute Plan: Chronic history of GERD. No evidence of GI bleed or hemorrhage at this time. Continue home medication PPI daily. (6) Hypothyroidism Code(s): E03.9 - Hypothyroidism, unspecified Status: Acute Plan: TSH: low at 0.301 Free T4: normal at 1.08 Hold levothyroxine home medication for now She may have been taking her medication incorrectly. (7) DVT prophylaxis Status: Acute Plan: SCDs only. (8) Nutrition, metabolism, and development symptoms Code(s): R63.8 - Other symptoms and signs concerning food and fluid intake Status: Acute Plan: Fluids: Not indicated at this time. Electrolytes: Within normal limits, replete as needed. Nutrition: Regular diet. DVT prophylaxis: SCDs Disposition: Patient will be evaluated by claims representative from [employer] for assisted-living facility placement and DCF will be following the case. Anticipate discharged once placement has been coordinated. - Assessment and Plan 87-year-old female, past medical history of pacer placement, CHF, hypertension, hypothyroidism, presents for altered mental status of unknown timeframe. Patient is here for placement purposes and to rule out alternative causes of delirium/cognitive impairment. As she is Souza acted, will consider if psychiatry could accept her as a patient. She may or may not have been taking her anti-dementia medicines as well as other medications and could definitely use psychiatry for help in maximizing her function. She has been having behavioral problems even here in the hospital with donning her high heels and running in the saucedo until she fell (1) Altered mental status Qualifiers: Altered mental status type: unspecified Qualified Code(s): R41.82 - Altered mental status, unspecified (3) Hypertension Qualifiers: Hypertension type: essential hypertension Qualified Code(s): I10 - Essential (primary) hypertension (4) CHF (congestive heart failure) Qualifiers: Heart failure type: unspecified Heart failure chronicity: chronic Qualified Code(s): I50.9 - Heart failure, unspecified (5) GERD (gastroesophageal reflux disease) Qualifiers: Esophagitis presence: esophagitis presence not specified Qualified Code(s): K21.9 - Gastro-esophageal reflux disease without esophagitis (6) Hypothyroidism Qualifiers: Hypothyroidism type: acquired Qualified Code(s): E03.9 - Hypothyroidism, unspecified
--- NOTE | 2017-10-05 10:24 | P.PNFP ---
Results - Labs Result diagrams: 10/01/17 05:15 09/30/17 06:40 Physical Exam Vital signs: Vital Signs 10/04/17 12:00 10/04/17 16:00 10/04/17 19:36 Temperature 97.7 F 97.6 F 98 F Pulse Rate 70 70 71 Respiratory Rate 16 16 18 Blood Pressure 157/73 H 153/74 H 121/73 Pulse Oximetry 97 97 95 10/04/17 20:00 10/05/17 03:39 10/05/17 08:00 Temperature 97.6 F Pulse Rate 70 70 70 Respiratory Rate 18 Blood Pressure 145/65 H Pulse Oximetry 97 Intake & Output 10/04/17 10/05/17 10/05/17 18:59 06:59 18:59 Other: # Voids 4 2 Date of Last Bowel Movement 10/03/17 10/03/17 # Bowel Movements 0 Assessment and Plan - Assessment (1) Altered mental status Code(s): R41.82 - Altered mental status, unspecified Status: Chronic Plan: Differential includes chronic dementia versus delirium versus electrolyte abnormality versus cranial lesion versus hypertension induced delirium Afebrile, not meeting sepsis criteria CBC normal, CMP normal, UA normal, troponin negative Based on a negative workup and history of slow but continued mental decline this seems a classic case of Alzheimer's. Admitted for observation Followed-up EKG, troponin negative Telemetry EEG: Mild encephalopathy Patient is medically stable AAO 1 today Follow-up psychiatry Recs. Psychiatry recommends placement. She did not have any psychiatric history. Discussed patient case with Dr. Ashby, patient does not meet inpatient psych criteria. [place]za act lifted, medically cleared. Avoid antipsychotics Approach sundowning with reorientation Follow-up with case management for placement -Spoke to case management and was informed that patient will be evaluated by [facility] for assisted living facility placement. The 8783 form has been completed and is on the patient's chart. Patient is being followed by [facility] (Dontrell- social work case manager [phone] and DCF phosphorus processing supervisor for case Alicia Reese [phone]) Spoke to neighbor Danelle and was informed patient has continued to decline in mental status over time. According to Danelle patient follows with pcp Dr. Aparicio (office #: ), attempted to get in contact with medical office to review patient's medication however no response but left message with callback number. Decision maker will be her sister Dania contact information can be found in patient's chart. (2) Nausea without vomiting Code(s): R11.0 - Nausea Status: Acute Plan: Patient complaining of nausea on 10/04/17 without episodes of vomiting -Zofran ordered as needed for nausea/ -Continue to monitor (3) Hypertension Code(s): I10 - Essential (primary) hypertension Status: Acute Plan: Patient with blood pressures ranging 140-170s over 70s Metoprolol medication decreased to 75mg 3 times daily (We have noted the allergy listed in [place] from 2008, however the [facility] records from 09/2017 document a prescription at discharge for metoprolol ) Diltiazem medication resumed at decreased dose of 120 mg daily can increase her medicine if tolerated and needed. Continue to monitor blood pressure Goal to keep diastolic blood pressure greater than or equal to 65 at her age (4) CHF (congestive heart failure) Code(s): I50.9 - Heart failure, unspecified Status: Chronic Plan: History of CHF documented, no documented ejection fraction No Clinical signs or symptoms consistent with CHF exacerbation Attempt to cut back medication and maintain systolic blood pressure greater than 65, Bumex was discontinued Potassium within normal limits supplement was discontinued as well (5) GERD (gastroesophageal reflux disease) Code(s): K21.9 - Gastro-esophageal reflux disease without esophagitis Status: Acute Plan: Chronic history of GERD. No evidence of GI bleed or hemorrhage at this time. Continue home medication PPI daily. (6) Hypothyroidism Code(s): E03.9 - Hypothyroidism, unspecified Status: Acute Plan: TSH: low at 0.301 Free T4: normal at 1.08 Hold levothyroxine home medication for now She may have been taking her medication incorrectly. (7) DVT prophylaxis Status: Acute Plan: SCDs only. (8) Nutrition, metabolism, and development symptoms Code(s): R63.8 - Other symptoms and signs concerning food and fluid intake Status: Acute Plan: Fluids: Not indicated at this time. Electrolytes: Within normal limits, replete as needed. Nutrition: Regular diet. DVT prophylaxis: SCDs Disposition: Patient will be evaluated by patient accounting representative from [place] for assisted-living facility placement and DCF will be following the case. Anticipate discharged once placement has been coordinated. - Assessment and Plan 87-year-old female, past medical history of pacer placement, CHF, hypertension, hypothyroidism, presents for altered mental status of unknown timeframe. Patient is here for placement purposes and to rule out alternative causes of delirium/cognitive impairment. As she is [place] acted, will consider if psychiatry could accept her as a patient. She may or may not have been taking her anti-dementia medicines as well as other medications and could definitely use psychiatry for help in maximizing her function. She has been having behavioral problems even here in the hospital with donning her high heels and running in the saucedo until she fell (1) Altered mental status Qualifiers: Altered mental status type: unspecified Qualified Code(s): R41.82 - Altered mental status, unspecified (3) Hypertension Qualifiers: Hypertension type: essential hypertension Qualified Code(s): I10 - Essential (primary) hypertension (4) CHF (congestive heart failure) Qualifiers: Heart failure type: unspecified Heart failure chronicity: chronic Qualified Code(s): I50.9 - Heart failure, unspecified (5) GERD (gastroesophageal reflux disease) Qualifiers: Esophagitis presence: esophagitis presence not specified Qualified Code(s): K21.9 - Gastro-esophageal reflux disease without esophagitis (6) Hypothyroidism Qualifiers: Hypothyroidism type: acquired Qualified Code(s): E03.9 - Hypothyroidism, unspecified
--- NOTE | 2017-10-05 17:17 | P.PNADD ---
Addendum to Inpatient Note Reason for Addendum: Additional Documentation Additional information: Off service note: Mrs. Holloway is a 87 yo F with pmhx of CHF, pacer placement, hypertension, thyroid disorder, who was brought to the ED by law enforcement under the [place]za act from doctor's office where she was deemed incapable of driving and caring for herself due to severe dementia. Patient presented worsening confusion and AMS. Through out hospital course her mental status baseline has fluctuated between AAOx1 (self) and AAOx2 (self and location). CT head done on admission showed a focal area of high density measuring 5 mm in the right parafalcine location in the right frontal lobe in the high convexity. However, this was partially present on the a prior examination from 2016, it is more prominent than the 2016 study but it was deemed extremely unlikely to represent acute blood products. Her BP medication have been adjusted to maintain diastolic BP > or = to 65. At the beginning of hospitalization pt demonstrated sundowning responsive to redirection. She has had no complaints throughout her hospital stay and has remained hemodynamically stable. CXR was normal and she has had no clinical signs of infection. Psychiatry was consulted and it was determined that patient does not need inpatient psych admission, Souza act has been lifted , seroquel medication was discontinued and recommendation were made to avoid antipsychotic medications for the pt. Patient is clinically stable and awaiting placement. Of note: Patient's sister Dania was contacted who referred questions regarding patient's health and social condition to patient's neighbor Danelle (contact info can be found on previous addendum note). I was informed by case management that [facility] is involved in the case. A 1823 form for assisted living facility placement has been completed and is in the patient's chart. According to case management, pt is awaiting evaluation from [facility] and for a dementia unit (locked unit due risk of patient trying to leave and go home). In addition attempts were made to contact pcp Dr. Tan at [phone], a message was left with call back number, however we have not yet received a response.
--- NOTE | 2017-10-05 19:05 | P.DS ---
Date of admission: 09/29/17 17:33 Primary care physician: John Sandoval MD Brief History from admission: 87-year-old female, past medical history of CHF, pacer placement, hypertension, thyroid disorder, presented under [place] act from doctor's office where she was deemed incapable of driving home and caring for herself due to her severe dementia. [facility] was contacted and is involved in the case, and most of the history is obtained from the ED physician who spoke with EMS and the doctor's note and the police Souza act form. Apparently the neighbors were primarily caring for this elderly woman until she has seemed to decompensate over time. Doctor became concerned when she was presenting with severe memory loss after having driven to the doctor's office herself. There are no caretakers or family members present to assist in the history taking. When the patient is asked how she got here she does explain that she went to the doctor's office for regular visit and she was shocked when they put her in a vehicle and took her here. "They forced me here practically. He knew something was not working well and I have to figure out what it was. I needed a new prescription."The patient continues to talk very circumferentially cannot tell a clear story. During her conversation she forgets what she is talking about and starts laughing. On review of systems she denies all, however she does admit to having a small amount of blood come out of her rectum overnight 3 days ago. However this was not independently witnessed. Denies any chest pain/shortness of breath. Denies any fever/chills. No acute events. She was reportedly ambulating all over the emergency department yesterday. She evidently became more confused overnight. She put on her high heels and began to walk and then subsequently fell without hitting her head. This morning she remains completely confused only oriented to her name and even searching for her last name. DS: Diagnosis - Discharge Diagnosis (1) Altered mental status Status: Chronic (2) Nausea without vomiting Status: Acute (3) Hypertension Status: Acute (4) CHF (congestive heart failure) Status: Chronic (5) GERD (gastroesophageal reflux disease) Status: Acute (6) Hypothyroidism Status: Acute (7) DVT prophylaxis Status: Acute (8) Nutrition, metabolism, and development symptoms Status: Acute DS: Medications - Discharge Medications Prescriptions: levothyroxine 25 mcg PO DAILY 30 Days #30 cap DS: Summary - Time Spent with Patient Total time spent providing and/or coordinating discharge services: - Quality: VTE Deep Vein Thrombosis/Pulmonary Embolism Present on Admission: No Exam Vital signs: Vital Signs 10/04/17 19:36 10/04/17 20:00 10/05/17 03:39 Temperature 98 F 97.6 F Pulse Rate 71 70 70 Respiratory Rate 18 18 Blood Pressure 121/73 145/65 H Pulse Oximetry 95 97 10/05/17 08:00 10/05/17 12:00 10/05/17 16:00 Temperature 97.7 F 98.1 F Pulse Rate 71 70 70 Respiratory Rate 16 16 Blood Pressure 151/89 H 114/56 L 132/63 Pulse Oximetry 99 96 Intake & Output 10/05/17 10/05/17 10/06/17 06:59 18:59 06:59 Other: # Voids 2 3 Date of Last Bowel Movement 10/03/17 Results - Impressions ITS Impressions Chest X-Ray 09/29/17 14:04 CONCLUSION: No acute cardiopulmonary disease. Head CT 09/29/17 14:04 CONCLUSION: 1. No definite acute finding is identified. There is a focal area of high density measuring 5 mm in the right parafalcine location in the right frontal lobe in the high convexity. Since this was partially present on the a prior examination from 2016 it is extremely unlikely to represent acute blood products. However, it is more prominent than the 2016 study so suggest attention to this at follow-up imaging. 2. Otherwise, stable examination with mild generalized atrophy and mild chronic periventricular white matter change. Discharge Plan - Discharge Disposition Patient Disposition: 04 [facility] - Discharge Condition Condition: Stable - Discharge Details Anticipated Discharge Date: 10/02/17 Discharge Comment: she needs supervision and will be placed in memory care unit. - Physicians Team Primary Care Provider: John Sandoval Attending Provider: Tessy Jimenez Other Providers: John Ashby MD
--- NOTE | 2017-10-05 19:05 | P.PNADD ---
Addendum to Inpatient Note Reason for Addendum: Additional Documentation (Off service transfer of care) Additional information: 87-year-old female, past medical history of CHF, pacer placement, hypertension, thyroid disorder, and Alzheimer's dementia brought to ED by police under [place] act from doctor's office where she was found to be disoriented and confused and was not supposed to be driving. Her PCP deemed patient incapable of driving home and caring for herself due to her severe dementia. Patient previously very independent and living at home and cared for primarily by neighbors who looked out for her. During her hospital course patient was admitted for observation under the [employer] act, she had a normal EKG, negative troponin, a urinalysis revealed no infection, toxicology was also negative, she was followed on telemetry with no issues, her EEG showed mild encephalopathy and serial neurological examinations wavered between alert and oriented 1 versus 0. During her inpatient course patient also had a fall, the patient took off her socks and put on her heels and decided to walk in the [place]o where she fell but sustained no injuries. Her heels were taken away from her. Psychiatry was consulted and deemed that the patient lack capacity to make disposition decisions as a consequence of cognitive impairment. At that time several labs are ordered a vitamin B12 that was at 240, methylmalonic acid at 0.59 and a TSH at 0.301. Her NARINDER screen was negative as was her RPR that was nonreactive. Patient on donezepil and memantine for Alzheimer's dementia. Patient also experiences sundowning where she becomes disoriented per psychiatry no antipsychotics were prescribed and she responds well to reorientation. Plan: -Patient awaiting evaluation from [facility] for placement -Follow-up with case management for placement -Continue donezepil and memantine -Continue Lopressor and diltiazem Of note: [facility] was contacted is this involved in the case, patient is being followed by [facility] (Dontrell- returned case inspector [phone] and [facility] securities supervisor for case Alicia Reese [phone]) PCP Dr. Aparicio (office #: [phone]) Patient's decision-maker is her sister Dania Luna that lives in [place] and was previously estranged. Phone number
[2017-10-06 07:21] LABS: Hematocrit 37.3 % (35.0-46.0); Hemoglobin 12.2 gm/dL (11.6-15.3); Mean Corpuscular HGB Conc 32.6 % (32.0-36.0); Mean Corpuscular Hemoglobin 27.6 pg (27.0-34.0); Mean Corpuscular Volume 84.7 fL (80.0-100.0); Mean Platelet Volume 7.9 fL (7.0-11.0); Platelet Count 270 th/mm3 (150-450); Red Blood Count 4.41 mil/mm3 (4.00-5.30); White Blood Count 6.1 th/mm3 (4.0-11.0)
[2017-10-06 07:45] LABS: Calcium 9.4 mg/dL (8.5-10.1); Carbon Dioxide 30.7 meq/L (21.0-32.0); Potassium 3.6 meq/L (3.5-5.1)
[2017-10-06] MEDS: Metoprolol Tartrate 25 MG Tablet PO SCH ×3 (10:02→18:56)
[2017-10-06] MEDS: dilTIAZem CD 120 MG Capsule PO SCH (10:02)
[2017-10-06 10:32] LABS: Phosphorus 3.5 mg/dL (2.5-4.9)
--- NOTE | 2017-10-06 10:46 | P.PNFP ---
Subjective Interval history: Patient seen and examined this morning. No acute events overnight. Patient kept stating she wished to go home. Reports that she "cleaned up the household here." Patient is oriented to self, not oriented to location or time. No other complaints at this time. <Juanjo Lozoya A - 10/06/17 10:46> Results - Labs Result diagrams: 10/06/17 07:05 10/07/17 09:00 <Tessy Jimenez - 10/09/17 15:17> Abnormal lab results 10/06/17 Range/Units 07:05 Anion Gap 4 L (5-15) meq/L BUN 25 H (7-18) mg/dL Creatinine 1.07 H (0.50-1.00) mg/dL Estimated GFR 49 L (>89) mL/min Short CBC 10/06/17 Range/Units 07:05 WBC 6.1 (4.0-11.0) th/mm3 Hgb 12.2 (11.6-15.3) gm/dL Hct 37.3 (35.0-46.0) % Plt Count 270 D (150-450) th/mm3 BMP 10/06/17 07:05 Sodium 140 Potassium 3.6 Chloride 105 Carbon Dioxide 30.7 BUN 25 H Creatinine 1.07 H Calcium 9.4 <ToniedoeJuanjoHardy - 10/06/17 10:46> Physical Exam Vital signs: Vital Signs 10/08/17 16:00 10/08/17 20:00 10/08/17 23:07 Temperature 97.8 F 97.1 F L 97.6 F Pulse Rate 73 70 70 Respiratory Rate 16 16 16 Blood Pressure 161/66 H 132/62 109/53 L Pulse Oximetry 97 96 10/09/17 03:37 10/09/17 08:00 10/09/17 11:17 Temperature 97.3 F L 97.7 F 97.7 F Pulse Rate 70 70 70 Respiratory Rate 18 16 14 Blood Pressure 128/60 127/62 160/71 H Pulse Oximetry 98 95 99 Intake & Output 10/08/17 10/09/17 10/09/17 18:59 06:59 18:59 Intake Total 60 / 60 Balance 60 / 60 Intake: Oral 60 / 60 Other: # Voids 4 2 Date of Last Bowel Movement 10/08/17 10/08/17 # Bowel Movements 1 <Tessy Jimenez M - 10/09/17 15:17> Vital Signs 10/05/17 12:00 10/05/17 16:00 10/05/17 20:00 Temperature 97.7 F 98.1 F 98.1 F Pulse Rate 70 70 69 Respiratory Rate 16 16 16 Blood Pressure 114/56 L 132/63 118/59 L Pulse Oximetry 99 96 98 10/05/17 23:29 10/06/17 00:00 10/06/17 04:00 Temperature 97.4 F L 97.9 F Pulse Rate 70 69 70 Respiratory Rate 17 16 Blood Pressure 127/60 122/63 Pulse Oximetry 98 99 10/06/17 08:00 Temperature 97.8 F Pulse Rate 70 Respiratory Rate 16 Blood Pressure 159/72 H Pulse Oximetry 99 Intake & Output 10/05/17 10/06/17 10/06/17 18:59 06:59 18:59 Other: # Voids 3 Date of Last Bowel Movement 10/03/17 10/03/17 <Juanjo Lozoya - 10/06/17 10:46> Narrative: GENERAL: Seated in bed, no acute distress SKIN: Warm and dry. HEAD: Atraumatic. Normocephalic. EYES: Pupils equal and round. No scleral icterus. No injection or drainage. ENT: No nasal bleeding or discharge. Mucous membranes pink and moist. NECK: Trachea midline. No JVD. CARDIOVASCULAR: Regular rate and rhythm. RESPIRATORY: No accessory muscle use. Clear to auscultation. Breath sounds equal bilaterally. GASTROINTESTINAL: Abdomen soft, non-tender, nondistended. Hepatic and splenic margins not palpable. MUSCULOSKELETAL: Extremities without clubbing, cyanosis, or edema. No obvious deformities. NEUROLOGICAL: Awake and alert. No obvious cranial nerve deficits. Motor grossly within normal limits. Five out of 5 muscle strength in the arms and legs. Normal speech. <Juanjo Lozoya - 10/06/17 10:46> Assessment and Plan - Assessment (1) Altered mental status Code(s): R41.82 - Altered mental status, unspecified Status: Chronic (2) Hypertension Code(s): I10 - Essential (primary) hypertension Status: Acute (3) CHF (congestive heart failure) Code(s): I50.9 - Heart failure, unspecified Status: Chronic (4) GERD (gastroesophageal reflux disease) Code(s): K21.9 - Gastro-esophageal reflux disease without esophagitis Status: Acute (5) Hypothyroidism Code(s): E03.9 - Hypothyroidism, unspecified Status: Acute (6) DVT prophylaxis Status: Acute (7) Nutrition, metabolism, and development symptoms Code(s): R63.8 - Other symptoms and signs concerning food and fluid intake Status: Acute <Tessy Jimenez - 10/09/17 15:17> (1) Altered mental status Code(s): R41.82 - Altered mental status, unspecified Status: Chronic Plan: Differential includes chronic dementia versus delirium versus electrolyte abnormality versus cranial lesion versus hypertension induced delirium Afebrile, not meeting sepsis criteria CBC normal, CMP normal, UA normal, troponin negative Based on a negative workup and history of slow but continued mental decline this seems a classic case of Alzheimer's. Admitted for observation Followed-up EKG, troponin negative Telemetry EEG: Mild encephalopathy Patient is medically stable AAO 1 today Follow-up psychiatry Recs. Psychiatry recommends placement. She did not have any psychiatric history. Discussed patient case with Dr. Ashby, patient does not meet inpatient psych criteria. Souza act lifted, medically cleared. Avoid antipsychotics Approach sundowning with reorientation Follow-up with case management for placement -Spoke to case management and was informed that patient will be evaluated by [facility] for assisted living facility placement. The 1823 form has been completed and is on the patient's chart. Patient is being followed by [facility] (Dontrell- case fitter [phone] and DCF corrugator supervisor for case Alciia Reese [phone]) Spoke to neighbor Danelle and was informed patient has continued to decline in mental status over time. According to Danelle patient follows with pcp Dr. Aparicio (office #: ), attempted to get in contact with medical office to review patient's medication however no response but left message with callback number. Decision maker will be her sister Dania contact information can be found in patient's chart. Awaiting coordination with DCF and case management (2) Nausea without vomiting Code(s): R11.0 - Nausea Status: Acute Plan: Patient complaining of nausea on 10/04/17 without episodes of vomiting -Zofran ordered as needed for nausea/ -Continue to monitor (3) Hypertension Code(s): I10 - Essential (primary) hypertension Status: Acute Plan: Patient with blood pressures ranging 140-170s over 70s Metoprolol medication decreased to 75mg 3 times daily (We have noted the allergy listed in [employer] from 2008, however the [facility] records from 09/2017 document a prescription at discharge for metoprolol ) Diltiazem medication resumed at decreased dose of 120 mg daily can increase her medicine if tolerated and needed. Continue to monitor blood pressure Goal to keep diastolic blood pressure greater than or equal to 65 at her age (4) CHF (congestive heart failure) Code(s): I50.9 - Heart failure, unspecified Status: Chronic Plan: History of CHF documented, no documented ejection fraction No Clinical signs or symptoms consistent with CHF exacerbation Attempt to cut back medication and maintain systolic blood pressure greater than 65, Bumex was discontinued Potassium within normal limits supplement was discontinued as well (5) GERD (gastroesophageal reflux disease) Code(s): K21.9 - Gastro-esophageal reflux disease without esophagitis Status: Acute Plan: Chronic history of GERD. No evidence of GI bleed or hemorrhage at this time. Continue home medication PPI daily. (6) Hypothyroidism Code(s): E03.9 - Hypothyroidism, unspecified Status: Acute Plan: TSH: low at 0.301 Free T4: normal at 1.08 Hold levothyroxine home medication for now She may have been taking her medication incorrectly. (7) DVT prophylaxis Status: Acute Plan: SCDs only. (8) Nutrition, metabolism, and development symptoms Code(s): R63.8 - Other symptoms and signs concerning food and fluid intake Status: Acute Plan: Fluids: Not indicated at this time. Electrolytes: Within normal limits, replete as needed. Nutrition: Regular diet. DVT prophylaxis: SCDs Disposition: Patient will be evaluated by electroplating sales representative from [place] [facility] for assisted-living facility placement and DCF will be following the case. Anticipate discharged once placement has been coordinated. <Juanjo Lozoya - 10/06/17 16:08> - Assessment and Plan 87-year-old female, past medical history of pacer placement, CHF, hypertension, hypothyroidism, presents for altered mental status of unknown timeframe. Patient is here for placement purposes and to rule out alternative causes of delirium/cognitive impairment. As she is Souza acted, will consider if psychiatry could accept her as a patient. She may or may not have been taking her anti-dementia medicines as well as other medications and could definitely use psychiatry for help in maximizing her function. She has been having behavioral problems even here in the hospital with donning her high heels and running in the saucedo until she fell <Juanjo Lozoya - 10/06/17 10:46> - Attending Attestation The exam, history, and the medical decision-making described in the above note were completed with the assistance of the resident physician. I reviewed and agree with the findings presented. I attest that I had a [id number] encounter with the patient on the same day, and personally performed and documented my assessment and findings in the medical record. hope she gets to leave the hospital soon. she hates it here <Tessy Jimenez - 10/09/17 15:17> <DevoraHardy - Last Filed: 10/06/17 16:08> (1) Altered mental status Qualifiers: Altered mental status type: unspecified Qualified Code(s): R41.82 - Altered mental status, unspecified (3) Hypertension Qualifiers: Hypertension type: essential hypertension Qualified Code(s): I10 - Essential (primary) hypertension (4) CHF (congestive heart failure) Qualifiers: Heart failure type: unspecified Heart failure chronicity: chronic Qualified Code(s): I50.9 - Heart failure, unspecified (5) GERD (gastroesophageal reflux disease) Qualifiers: Esophagitis presence: esophagitis presence not specified Qualified Code(s): K21.9 - Gastro-esophageal reflux disease without esophagitis (6) Hypothyroidism Qualifiers: Hypothyroidism type: acquired Qualified Code(s): E03.9 - Hypothyroidism, unspecified <Tessy Jimenez - Last Filed: 10/09/17 15:17> (1) Altered mental status Qualifiers: Altered mental status type: unspecified Qualified Code(s): R41.82 - Altered mental status, unspecified (2) Hypertension Qualifiers: Hypertension type: essential hypertension Qualified Code(s): I10 - Essential (primary) hypertension (3) CHF (congestive heart failure) Qualifiers: Heart failure type: unspecified Heart failure chronicity: chronic Qualified Code(s): I50.9 - Heart failure, unspecified (4) GERD (gastroesophageal reflux disease) Qualifiers: Esophagitis presence: esophagitis presence not specified Qualified Code(s): K21.9 - Gastro-esophageal reflux disease without esophagitis (5) Hypothyroidism Qualifiers: Hypothyroidism type: acquired Qualified Code(s): E03.9 - Hypothyroidism, unspecified <Juanjo Lozoya A - Last Filed: 10/06/17 16:08> (1) Altered mental status Qualifiers: Altered mental status type: unspecified Qualified Code(s): R41.82 - Altered mental status, unspecified (3) Hypertension Qualifiers: Hypertension type: essential hypertension Qualified Code(s): I10 - Essential (primary) hypertension (4) CHF (congestive heart failure) Qualifiers: Heart failure type: unspecified Heart failure chronicity: chronic Qualified Code(s): I50.9 - Heart failure, unspecified (5) GERD (gastroesophageal reflux disease) Qualifiers: Esophagitis presence: esophagitis presence not specified Qualified Code(s): K21.9 - Gastro-esophageal reflux disease without esophagitis (6) Hypothyroidism Qualifiers: Hypothyroidism type: acquired Qualified Code(s): E03.9 - Hypothyroidism, unspecified <Tessy Jimenez M - Last Filed: 10/09/17 15:17> (1) Altered mental status Qualifiers: Altered mental status type: unspecified Qualified Code(s): R41.82 - Altered mental status, unspecified (2) Hypertension Qualifiers: Hypertension type: essential hypertension Qualified Code(s): I10 - Essential (primary) hypertension (3) CHF (congestive heart failure) Qualifiers: Heart failure type: unspecified Heart failure chronicity: chronic Qualified Code(s): I50.9 - Heart failure, unspecified (4) GERD (gastroesophageal reflux disease) Qualifiers: Esophagitis presence: esophagitis presence not specified Qualified Code(s): K21.9 - Gastro-esophageal reflux disease without esophagitis (5) Hypothyroidism Qualifiers: Hypothyroidism type: acquired Qualified Code(s): E03.9 - Hypothyroidism, unspecified
[2017-10-07] MEDS: dilTIAZem CD 120 MG Capsule PO SCH (09:00)
[2017-10-07] MEDS: Metoprolol Tartrate 25 MG Tablet PO SCH ×3 (09:00→18:49)
[2017-10-07 10:03] LABS: Calcium 9.3 mg/dL (8.5-10.1); Potassium 3.5 meq/L (3.5-5.1)
--- NOTE | 2017-10-07 11:13 | P.PNFP ---
Subjective Interval history: Ms. Holloway reports no events overnight. She endorses a mild productive cough. She denies nausea/vomiting, chest pain, difficulty breathing, abdominal pain. She is anxious and requesting to go home. <Kierra Morrow - 10/07/17 11:12> Results - Labs Result diagrams: 10/06/17 07:05 10/07/17 09:00 <Harpreet Guan - 10/07/17 16:19> Abnormal lab results 10/07/17 Range/Units 09:00 BUN 21 H (7-18) mg/dL Estimated GFR 57 L (>89) mL/min [facility] 10/07/17 09:00 Sodium 142 Potassium 3.5 Chloride 105 Carbon Dioxide 27.0 BUN 21 H Creatinine 0.94 Calcium 9.3 <Harpreet Guan - 10/07/17 16:19> Abnormal lab results 10/07/17 Range/Units 09:00 BUN 21 H (7-18) mg/dL Estimated GFR 57 L (>89) mL/min [facility] 10/07/17 09:00 Sodium 142 Potassium 3.5 Chloride 105 Carbon Dioxide 27.0 BUN 21 H Creatinine 0.94 Calcium 9.3 <Kierra Morrow - 10/07/17 11:12> Physical Exam Vital signs: Vital Signs 10/06/17 20:00 10/07/17 00:00 10/07/17 04:00 Temperature 97.5 F L 97.4 F L 97.9 F Pulse Rate 70 70 70 Respiratory Rate 16 16 16 Blood Pressure 117/55 L 130/68 131/57 L Pulse Oximetry 99 98 96 10/07/17 08:00 10/07/17 09:00 10/07/17 12:00 Temperature 97.7 F 97.8 F Pulse Rate 72 70 67 Respiratory Rate 16 16 Blood Pressure 166/74 H 156/80 H Pulse Oximetry 98 98 10/07/17 16:00 Temperature 97.7 F Pulse Rate 69 Respiratory Rate 16 Blood Pressure 142/68 H Pulse Oximetry 98 Intake & Output 10/06/17 10/07/17 10/07/17 18:59 06:59 18:59 Other: # Voids 2 Date of Last Bowel Movement 10/04/17 10/06/17 10/06/17 # Bowel Movements 0 <Harpreet Guan 10/07/17 16:19> Vital Signs 10/06/17 12:00 10/06/17 16:00 10/06/17 20:00 Temperature 97.6 F 97.5 F L 97.5 F L Pulse Rate 66 71 70 Respiratory Rate 16 16 16 Blood Pressure 145/65 H 139/64 117/55 L Pulse Oximetry 95 96 99 10/07/17 00:00 10/07/17 04:00 10/07/17 08:00 Temperature 97.4 F L 97.9 F 97.7 F Pulse Rate 70 70 72 Respiratory Rate 16 16 16 Blood Pressure 130/68 131/57 L 166/74 H Pulse Oximetry 98 96 98 Intake & Output 10/06/17 10/07/17 10/07/17 18:59 06:59 18:59 Other: # Voids 2 Date of Last Bowel Movement 10/04/17 10/06/17 10/06/17 # Bowel Movements 0 <OdalysKierra rodgers - 10/07/17 11:12> Narrative: GENERAL: Seated in bed, no acute distress SKIN: Warm and dry. HEAD: Atraumatic. Normocephalic. EYES: No scleral icterus. No injection or drainage. ENT: No nasal bleeding or discharge. Mucous membranes pink and moist. NECK: Trachea midline. No JVD. CARDIOVASCULAR: Regular rate and rhythm. RESPIRATORY: No accessory muscle use. Clear to auscultation. Breath sounds equal bilaterally. GASTROINTESTINAL: Abdomen soft, non-tender, nondistended. Hepatic and splenic margins not palpable. MUSCULOSKELETAL: Extremities without clubbing, cyanosis, or edema. No obvious deformities. NEUROLOGICAL: Awake and alert. No obvious cranial nerve deficits. Motor grossly within normal limits. Oriented only to self. <Kierra Morrow - 10/07/17 11:12> Assessment and Plan - Assessment (1) Altered mental status Code(s): R41.82 - Altered mental status, unspecified Status: Chronic (2) Hypertension Code(s): I10 - Essential (primary) hypertension Status: Acute (3) CHF (congestive heart failure) Code(s): I50.9 - Heart failure, unspecified Status: Chronic (4) GERD (gastroesophageal reflux disease) Code(s): K21.9 - Gastro-esophageal reflux disease without esophagitis Status: Acute (5) Hypothyroidism Code(s): E03.9 - Hypothyroidism, unspecified Status: Acute (6) DVT prophylaxis Status: Acute (7) Nutrition, metabolism, and development symptoms Code(s): R63.8 - Other symptoms and signs concerning food and fluid intake Status: Acute (8) Nausea without vomiting Code(s): R11.0 - Nausea Status: Acute <Harpreet Guan - 10/07/17 16:19> (1) Altered mental status Code(s): R41.82 - Altered mental status, unspecified Status: Chronic Plan: -Still awaiting placement for patient as she requires a locked unit. Case management has spoke with Martha Libby act lifted, medically cleared. -Avoid antipsychotics -Approach sundowning with reorientation -Patient is being followed by [facility] (Dontrell- clinical case manager [phone] and DCF supervisor mails for case Alicia Reese [phone]) -Decision maker will be her sister Dania contact information can be found in patient's chart. Awaiting coordination with DCF and case management (2) Hypertension Code(s): I10 - Essential (primary) hypertension Status: Acute Plan: Patient with blood pressures ranging 130-160s over 70s -Continue metoprolol 75 TID -Continue Diltiazem 120 daily -Continue to monitor blood pressure -Goal to keep diastolic blood pressure greater than or equal to 65 due to her age (3) CHF (congestive heart failure) Code(s): I50.9 - Heart failure, unspecified Status: Chronic Plan: Continue to monitor for worsening SOB History of CHF documented, no documented ejection fraction No Clinical signs or symptoms consistent with CHF exacerbation Potassium within normal limits supplement was discontinued as well (4) GERD (gastroesophageal reflux disease) Code(s): K21.9 - Gastro-esophageal reflux disease without esophagitis Status: Acute Plan: Continue Protonix Chronic history of GERD. No evidence of GI bleed or hemorrhage at this time. (5) Hypothyroidism Code(s): E03.9 - Hypothyroidism, unspecified Status: Acute Plan: Levothyroxine home medication held for now TSH and Free T4 ordered toda 09/29: TSH: low at 0.301 Free T4: normal at 1.08 . (6) DVT prophylaxis Status: Acute Plan: SCDs only. (7) Nutrition, metabolism, and development symptoms Code(s): R63.8 - Other symptoms and signs concerning food and fluid intake Status: Acute Plan: Fluids: Not indicated at this time. Electrolytes: Within normal limits, replete as needed. Nutrition: Regular diet. DVT prophylaxis: SCDs Disposition: Patient will be evaluated by service support representative from [place] for assisted-living facility placement in locked unit and DCF will be following the case. Anticipate discharged once placement has been coordinated. (8) Nausea without vomiting Code(s): R11.0 - Nausea Status: Acute Plan: Patient complaining of nausea on 10/04/17 without episodes of vomiting -Zofran ordered as needed for nausea -Continue to monitor <Kierra Morrow - 10/07/17 11:01> - Assessment and Plan 87-year-old female, past medical history of pacer placement, CHF, hypertension, hypothyroidism, presents for altered mental status of unknown timeframe. Patient is here for placement purposes and to rule out alternative causes of delirium/cognitive impairment. She has been having behavioral problems even here in the hospital with donning her high heels and running in the saucedo until she fell. Awaiting placement. <Kierra Morrow - 10/07/17 11:12> Discussed Condition With: Rebecca Lozoya and Freida <Kierra Morrow - 10/07/17 11:12> - Attending Attestation Patient examined during medical rounds and case discussed with resident team I have read the above note and agree with the assessment/plan as discussed with me I was involved in all medical decision making for this patient Harpreet Guan MD <Harpreet Guan - 10/07/17 16:19> <Kierra Morrow E - Last Filed: 10/07/17 11:01> (1) Altered mental status Qualifiers: Altered mental status type: unspecified Qualified Code(s): R41.82 - Altered mental status, unspecified (2) Hypertension Qualifiers: Hypertension type: essential hypertension Qualified Code(s): I10 - Essential (primary) hypertension (3) CHF (congestive heart failure) Qualifiers: Heart failure type: unspecified Heart failure chronicity: chronic Qualified Code(s): I50.9 - Heart failure, unspecified (4) GERD (gastroesophageal reflux disease) Qualifiers: Esophagitis presence: esophagitis presence not specified Qualified Code(s): K21.9 - Gastro-esophageal reflux disease without esophagitis (5) Hypothyroidism Qualifiers: Hypothyroidism type: acquired Qualified Code(s): E03.9 - Hypothyroidism, unspecified <Harpreet Guan - Last Filed: 10/07/17 16:19> (1) Altered mental status Qualifiers: Altered mental status type: unspecified Qualified Code(s): R41.82 - Altered mental status, unspecified (2) Hypertension Qualifiers: Hypertension type: essential hypertension Qualified Code(s): I10 - Essential (primary) hypertension (3) CHF (congestive heart failure) Qualifiers: Heart failure type: unspecified Heart failure chronicity: chronic Qualified Code(s): I50.9 - Heart failure, unspecified (4) GERD (gastroesophageal reflux disease) Qualifiers: Esophagitis presence: esophagitis presence not specified Qualified Code(s): K21.9 - Gastro-esophageal reflux disease without esophagitis (5) Hypothyroidism Qualifiers: Hypothyroidism type: acquired Qualified Code(s): E03.9 - Hypothyroidism, unspecified <Kierra Morrow - Last Filed: 10/07/17 11:01> (1) Altered mental status Qualifiers: Altered mental status type: unspecified Qualified Code(s): R41.82 - Altered mental status, unspecified (2) Hypertension Qualifiers: Hypertension type: essential hypertension Qualified Code(s): I10 - Essential (primary) hypertension (3) CHF (congestive heart failure) Qualifiers: Heart failure type: unspecified Heart failure chronicity: chronic Qualified Code(s): I50.9 - Heart failure, unspecified (4) GERD (gastroesophageal reflux disease) Qualifiers: Esophagitis presence: esophagitis presence not specified Qualified Code(s): K21.9 - Gastro-esophageal reflux disease without esophagitis (5) Hypothyroidism Qualifiers: Hypothyroidism type: acquired Qualified Code(s): E03.9 - Hypothyroidism, unspecified <Harpreet Guan - Last Filed: 10/07/17 16:19> (1) Altered mental status Qualifiers: Altered mental status type: unspecified Qualified Code(s): R41.82 - Altered mental status, unspecified (2) Hypertension Qualifiers: Hypertension type: essential hypertension Qualified Code(s): I10 - Essential (primary) hypertension (3) CHF (congestive heart failure) Qualifiers: Heart failure type: unspecified Heart failure chronicity: chronic Qualified Code(s): I50.9 - Heart failure, unspecified (4) GERD (gastroesophageal reflux disease) Qualifiers: Esophagitis presence: esophagitis presence not specified Qualified Code(s): K21.9 - Gastro-esophageal reflux disease without esophagitis (5) Hypothyroidism Qualifiers: Hypothyroidism type: acquired Qualified Code(s): E03.9 - Hypothyroidism, unspecified
[2017-10-07 12:55] LABS: Free T4 (Free Thyroxine) 1.26 ng/dL (0.76-1.46); Thyroid Stimulating Hormone 1.22 uIU/mL (0.358-3.740)
[2017-10-08] MEDS: dilTIAZem CD 120 MG Capsule PO SCH (08:58)
[2017-10-08] MEDS: Metoprolol Tartrate 25 MG Tablet PO SCH ×3 (08:59→17:57)
--- NOTE | 2017-10-08 11:00 | P.PNFP ---
Subjective Interval history: Pt seen and examined this morning. No acute complaints overnight. Denies any complaints. Oriented to person. Denies any chest pain, SOB, abdominal pain, leg pain. <Carlitos Bartholomew - 10/08/17 10:59> Results - Labs Result diagrams: 10/06/17 07:05 10/07/17 09:00 <Harpreet Guan - 10/08/17 15:17> Physical Exam Vital signs: Vital Signs 10/07/17 16:00 10/07/17 20:00 10/07/17 21:15 Temperature 97.7 F 98.1 F Pulse Rate 69 80 70 Respiratory Rate 16 16 Blood Pressure 142/68 H 126/67 Pulse Oximetry 98 97 10/08/17 00:00 10/08/17 00:25 10/08/17 04:00 Temperature 98.0 F 98.1 F Pulse Rate 74 70 69 Respiratory Rate 16 14 Blood Pressure 124/70 120/74 Pulse Oximetry 96 95 10/08/17 07:58 10/08/17 08:00 10/08/17 12:00 Temperature 97.4 F L 97.7 F Pulse Rate 70 70 70 Respiratory Rate 16 Blood Pressure 140/67 138/61 Pulse Oximetry 100 99 Intake & Output 10/07/17 10/08/17 10/08/17 18:59 06:59 18:59 Other: # Voids 4 Date of Last Bowel Movement 10/06/17 10/08/17 <Harpreet Guan - 10/08/17 15:17> Vital Signs 10/07/17 12:00 10/07/17 16:00 10/07/17 20:00 Temperature 97.8 F 97.7 F 98.1 F Pulse Rate 67 69 80 Respiratory Rate 16 16 16 Blood Pressure 156/80 H 142/68 H 126/67 Pulse Oximetry 98 98 97 10/07/17 21:15 10/08/17 00:00 10/08/17 00:25 Temperature 98.0 F Pulse Rate 70 74 70 Respiratory Rate 16 Blood Pressure 124/70 Pulse Oximetry 96 10/08/17 04:00 10/08/17 07:58 10/08/17 08:00 Temperature 98.1 F 97.4 F L Pulse Rate 69 70 70 Respiratory Rate 14 16 Blood Pressure 120/74 140/67 Pulse Oximetry 95 100 Intake & Output 10/07/17 10/08/17 10/08/17 18:59 06:59 18:59 Other: # Voids 4 Date of Last Bowel Movement 10/06/17 10/08/17 <Carlitos Bartholomew - 10/08/17 10:59> Narrative: GENERAL: sitting up in bed, NAD SKIN: Warm and dry. CARDIOVASCULAR: Regular rate and rhythm. RESPIRATORY: No accessory muscle use. Clear to auscultation. Breath sounds equal bilaterally. GASTROINTESTINAL: Abdomen soft, non-tender, nondistended. MUSCULOSKELETAL: Extremities without clubbing, cyanosis, or edema. No obvious deformities. NEUROLOGICAL: Awake and alert. Oriented to person, not time or place <Carlitos Bartholomew - 10/08/17 10:59> Assessment and Plan - Assessment (1) Altered mental status Code(s): R41.82 - Altered mental status, unspecified Status: Chronic (2) Hypertension Code(s): I10 - Essential (primary) hypertension Status: Acute (3) CHF (congestive heart failure) Code(s): I50.9 - Heart failure, unspecified Status: Chronic (4) GERD (gastroesophageal reflux disease) Code(s): K21.9 - Gastro-esophageal reflux disease without esophagitis Status: Acute (5) Hypothyroidism Code(s): E03.9 - Hypothyroidism, unspecified Status: Acute (6) DVT prophylaxis Status: Acute (7) Nutrition, metabolism, and development symptoms Code(s): R63.8 - Other symptoms and signs concerning food and fluid intake Status: Acute <Harpreet Guan - 10/08/17 15:17> (1) Altered mental status Code(s): R41.82 - Altered mental status, unspecified Status: Chronic Plan: -Still awaiting placement for patient as she requires a locked unit. Case management has spoke with Martha Carter act lifted, medically cleared. -Avoid antipsychotics -Approach sundowning with reorientation -Patient is being followed by [facility] (Dontrell- case checker [phone] [facility] supervisor rolling room for case Alicia Reese [phone]) -Decision maker will be her sister Dania contact information can be found in patient's chart. Awaiting coordination with [facility] and case management (2) Hypertension Code(s): I10 - Essential (primary) hypertension Status: Acute Plan: Monitor blood pressure. -Continue metoprolol 75 TID -Continue Diltiazem 120 daily -Continue to monitor blood pressure -Goal to keep diastolic blood pressure greater than or equal to 65 due to her age (3) CHF (congestive heart failure) Code(s): I50.9 - Heart failure, unspecified Status: Chronic Plan: Continue to monitor for worsening SOB History of CHF documented, no documented ejection fraction No Clinical signs or symptoms consistent with CHF exacerbation Potassium within normal limits supplement was discontinued (4) GERD (gastroesophageal reflux disease) Code(s): K21.9 - Gastro-esophageal reflux disease without esophagitis Status: Acute Plan: Continue Protonix Chronic history of GERD. No evidence of GI bleed or hemorrhage at this time. (5) Hypothyroidism Code(s): E03.9 - Hypothyroidism, unspecified Status: Acute Plan: Levothyroxine home medication held for now TSH and Free T4 ordered toda 09/29: TSH: low at 0.301 Free T4: normal at 1.08 . (6) DVT prophylaxis Status: Acute Plan: SCDs only. (7) Nutrition, metabolism, and development symptoms Code(s): R63.8 - Other symptoms and signs concerning food and fluid intake Status: Acute Plan: Fluids: Not indicated at this time. Electrolytes: Within normal limits, replete as needed. Nutrition: Regular diet. DVT prophylaxis: SCDs Disposition: Patient will be evaluated by publications sales representative from [place] for assisted-living facility placement in locked unit and DCF will be following the case. Anticipate discharged once placement has been coordinated. <Carlitos Bartholomew - 10/08/17 10:55> - Assessment and Plan 87-year-old female, past medical history of pacer placement, CHF, hypertension, hypothyroidism, presents for altered mental status of unknown timeframe. Patient is here for placement purposes and to rule out alternative causes of delirium/cognitive impairment. She has been having behavioral problems even here in the hospital with donning her high heels and running in the saucedo until she fell. Awaiting placement. <Carlitos Bartholomew - 10/08/17 10:59> - Attending Attestation Patient examined independently and case discussed with resident physician I have read the above note and agree with the assessment/plan as discussed with me I was involved in all medical decision making for this patient Harpreet Guan MD <Harpreet Guan 10/08/17 15:17> <TennilleaaronCarlitos J - Last Filed: 10/08/17 10:55> (1) Altered mental status Qualifiers: Altered mental status type: unspecified Qualified Code(s): R41.82 - Altered mental status, unspecified (2) Hypertension Qualifiers: Hypertension type: essential hypertension Qualified Code(s): I10 - Essential (primary) hypertension (3) CHF (congestive heart failure) Qualifiers: Heart failure type: unspecified Heart failure chronicity: chronic Qualified Code(s): I50.9 - Heart failure, unspecified (4) GERD (gastroesophageal reflux disease) Qualifiers: Esophagitis presence: esophagitis presence not specified Qualified Code(s): K21.9 - Gastro-esophageal reflux disease without esophagitis (5) Hypothyroidism Qualifiers: Hypothyroidism type: acquired Qualified Code(s): E03.9 - Hypothyroidism, unspecified <Harpreet Guan - Last Filed: 10/08/17 15:17> (1) Altered mental status Qualifiers: Altered mental status type: unspecified Qualified Code(s): R41.82 - Altered mental status, unspecified (2) Hypertension Qualifiers: Hypertension type: essential hypertension Qualified Code(s): I10 - Essential (primary) hypertension (3) CHF (congestive heart failure) Qualifiers: Heart failure type: unspecified Heart failure chronicity: chronic Qualified Code(s): I50.9 - Heart failure, unspecified (4) GERD (gastroesophageal reflux disease) Qualifiers: Esophagitis presence: esophagitis presence not specified Qualified Code(s): K21.9 - Gastro-esophageal reflux disease without esophagitis (5) Hypothyroidism Qualifiers: Hypothyroidism type: acquired Qualified Code(s): E03.9 - Hypothyroidism, unspecified <Carlitos Bartholomew - Last Filed: 10/08/17 10:55> (1) Altered mental status Qualifiers: Altered mental status type: unspecified Qualified Code(s): R41.82 - Altered mental status, unspecified (2) Hypertension Qualifiers: Hypertension type: essential hypertension Qualified Code(s): I10 - Essential (primary) hypertension (3) CHF (congestive heart failure) Qualifiers: Heart failure type: unspecified Heart failure chronicity: chronic Qualified Code(s): I50.9 - Heart failure, unspecified (4) GERD (gastroesophageal reflux disease) Qualifiers: Esophagitis presence: esophagitis presence not specified Qualified Code(s): K21.9 - Gastro-esophageal reflux disease without esophagitis (5) Hypothyroidism Qualifiers: Hypothyroidism type: acquired Qualified Code(s): E03.9 - Hypothyroidism, unspecified <Freida,Harpreet - Last Filed: 10/08/17 15:17> (1) Altered mental status Qualifiers: Altered mental status type: unspecified Qualified Code(s): R41.82 - Altered mental status, unspecified (2) Hypertension Qualifiers: Hypertension type: essential hypertension Qualified Code(s): I10 - Essential (primary) hypertension (3) CHF (congestive heart failure) Qualifiers: Heart failure type: unspecified Heart failure chronicity: chronic Qualified Code(s): I50.9 - Heart failure, unspecified (4) GERD (gastroesophageal reflux disease) Qualifiers: Esophagitis presence: esophagitis presence not specified Qualified Code(s): K21.9 - Gastro-esophageal reflux disease without esophagitis (5) Hypothyroidism Qualifiers: Hypothyroidism type: acquired Qualified Code(s): E03.9 - Hypothyroidism, unspecified
--- NOTE | 2017-10-09 09:11 | P.PNFP ---
Subjective Interval history: Ms. Holloway is lying in bed comfortable. Endorses slightly phlegmy cough. Denies chest pain, shortness of breath, nausea, vomiting, abdominal pain, leg pain. <Kierra Morrow - 10/09/17 10:14> Results - Labs Result diagrams: 10/06/17 07:05 10/07/17 09:00 <Rachel Guany - 10/09/17 17:43> Physical Exam Vital signs: Vital Signs 10/08/17 20:00 10/08/17 23:07 10/09/17 03:37 Temperature 97.1 F L 97.6 F 97.3 F L Pulse Rate 70 70 70 Respiratory Rate 16 16 18 Blood Pressure 132/62 109/53 L 128/60 Pulse Oximetry 97 96 98 10/09/17 08:00 10/09/17 11:17 10/09/17 15:45 Temperature 97.7 F 97.7 F 97.7 F Pulse Rate 70 70 70 Respiratory Rate 16 14 16 Blood Pressure 127/62 160/71 H 141/63 H Pulse Oximetry 95 99 98 Intake & Output 10/08/17 10/09/17 10/09/17 18:59 06:59 18:59 Intake Total 60 / 60 Balance 60 / 60 Intake: Oral 60 / 60 Other: # Voids 4 2 Date of Last Bowel Movement 10/08/17 10/08/17 # Bowel Movements 1 <Harpreet Guan - 10/09/17 17:43> Vital Signs 10/08/17 12:00 10/08/17 16:00 10/08/17 20:00 Temperature 97.7 F 97.8 F 97.1 F L Pulse Rate 70 73 70 Respiratory Rate 16 16 Blood Pressure 138/61 161/66 H 132/62 Pulse Oximetry 99 97 10/08/17 23:07 10/09/17 03:37 Temperature 97.6 F 97.3 F L Pulse Rate 70 70 Respiratory Rate 16 18 Blood Pressure 109/53 L 128/60 Pulse Oximetry 96 98 Intake & Output 10/08/17 10/09/17 10/09/17 18:59 06:59 18:59 Intake Total 60 / 60 Balance 60 / 60 Intake: Oral 60 / 60 Other: # Voids 4 2 Date of Last Bowel Movement 10/08/17 # Bowel Movements 1 <Kierra Morrow - 10/09/17 09:11> Narrative: GENERAL: Lying in bed, NAD SKIN: Warm and dry. CARDIOVASCULAR: Regular rate and rhythm. RESPIRATORY: No accessory muscle use. Clear to auscultation. Breath sounds equal bilaterally. GASTROINTESTINAL: Abdomen soft, non-tender, nondistended. Normoactive bowel sounds MUSCULOSKELETAL: Extremities without clubbing, cyanosis, or edema. Calves nontender to palpation. NEUROLOGICAL: Awake and alert. Oriented to person, not time or place. Patient states we are "in the year of August." <Kierra Morrow Joanna - 10/09/17 10:14> Assessment and Plan - Assessment (1) Altered mental status Code(s): R41.82 - Altered mental status, unspecified Status: Chronic (2) Hypertension Code(s): I10 - Essential (primary) hypertension Status: Acute (3) CHF (congestive heart failure) Code(s): I50.9 - Heart failure, unspecified Status: Chronic (4) GERD (gastroesophageal reflux disease) Code(s): K21.9 - Gastro-esophageal reflux disease without esophagitis Status: Acute (5) Hypothyroidism Code(s): E03.9 - Hypothyroidism, unspecified Status: Acute (6) DVT prophylaxis Status: Acute (7) Nutrition, metabolism, and development symptoms Code(s): R63.8 - Other symptoms and signs concerning food and fluid intake Status: Acute <Harpreet Guan - 10/09/17 17:43> (1) Altered mental status Code(s): R41.82 - Altered mental status, unspecified Status: Chronic Plan: -Still awaiting placement for patient as she requires a locked unit. Case management has spoke with [facility] international account representative evaluated patient yesterday. States they have to speak with [facility] before they can make any more further recommendations. Spoke with case management they stated they will follow-up today. -Souza act lifted, medically cleared. -Avoid antipsychotics -Approach with reorientation -Patient is being followed by [facility] (Dontrell- pillowcase turner [phone] and [facility] cabin cleaning supervisor for case Alicia Reese [phone]) -Decision maker will be her sister Dania contact information can be found in patient's chart. Awaiting coordination with [facility] and case management (2) Hypertension Code(s): I10 - Essential (primary) hypertension Status: Acute Plan: Monitor blood pressure. -Continue metoprolol 75 TID -Continue Diltiazem 120 daily -Continue to monitor blood pressure -Goal to keep diastolic blood pressure greater than or equal to 65 due to her age (3) CHF (congestive heart failure) Code(s): I50.9 - Heart failure, unspecified Status: Chronic Plan: Continue to monitor for worsening SOB History of CHF documented, no documented ejection fraction No Clinical signs or symptoms consistent with CHF exacerbation Potassium within normal limits supplement was discontinued (4) GERD (gastroesophageal reflux disease) Code(s): K21.9 - Gastro-esophageal reflux disease without esophagitis Status: Acute Plan: Continue Protonix Chronic history of GERD. No evidence of GI bleed or hemorrhage at this time. (5) Hypothyroidism Code(s): E03.9 - Hypothyroidism, unspecified Status: Acute Plan: Levothyroxine home medication held for now TSH and Free T4 ordered today 10/07: TSH 1.22 free T4 1.26 within normal limits . (6) DVT prophylaxis Status: Acute Plan: SCDs only. (7) Nutrition, metabolism, and development symptoms Code(s): R63.8 - Other symptoms and signs concerning food and fluid intake Status: Acute Plan: Fluids: Not indicated at this time. Electrolytes: Within normal limits, replete as needed. Nutrition: Regular diet. DVT prophylaxis: SCDs Disposition: Patient was evaluated by international account representative from [facility] for assisted -living facility placement in locked unit and DCF is following the case. Anticipate discharged once placement has been coordinated. <Kierra Morrow - 10/09/17 10:08> - Assessment and Plan 87-year-old female, past medical history of pacer placement, CHF, hypertension, hypothyroidism, presents for altered mental status of unknown timeframe. Patient is here for placement purposes and to rule out alternative causes of delirium/cognitive impairment. She has been having behavioral problems even here in the hospital with donning her high heels and running in the saucedo until she fell. Awaiting placement. <Kierra Morrow - 10/09/17 09:11> Discussed Condition With: Rebecca Guan and Devora <Kierra Morrow 10/09/17 10:14> - Attending Attestation Patient examined independently and case discussed with resident physicians I have read the above note and agree with the assessment/plan as discussed with me I was involved in all medical decision making for this patient Harpreet Guan MD <Harpreet Guan - 10/09/17 17:43> <Kierra Morrow E - Last Filed: 10/09/17 10:08> (1) Altered mental status Qualifiers: Altered mental status type: unspecified Qualified Code(s): R41.82 - Altered mental status, unspecified (2) Hypertension Qualifiers: Hypertension type: essential hypertension Qualified Code(s): I10 - Essential (primary) hypertension (3) CHF (congestive heart failure) Qualifiers: Heart failure type: unspecified Heart failure chronicity: chronic Qualified Code(s): I50.9 - Heart failure, unspecified (4) GERD (gastroesophageal reflux disease) Qualifiers: Esophagitis presence: esophagitis presence not specified Qualified Code(s): K21.9 - Gastro-esophageal reflux disease without esophagitis (5) Hypothyroidism Qualifiers: Hypothyroidism type: acquired Qualified Code(s): E03.9 - Hypothyroidism, unspecified <Harpreet Guan - Last Filed: 10/09/17 17:43> (1) Altered mental status Qualifiers: Altered mental status type: unspecified Qualified Code(s): R41.82 - Altered mental status, unspecified (2) Hypertension Qualifiers: Hypertension type: essential hypertension Qualified Code(s): I10 - Essential (primary) hypertension (3) CHF (congestive heart failure) Qualifiers: Heart failure type: unspecified Heart failure chronicity: chronic Qualified Code(s): I50.9 - Heart failure, unspecified (4) GERD (gastroesophageal reflux disease) Qualifiers: Esophagitis presence: esophagitis presence not specified Qualified Code(s): K21.9 - Gastro-esophageal reflux disease without esophagitis (5) Hypothyroidism Qualifiers: Hypothyroidism type: acquired Qualified Code(s): E03.9 - Hypothyroidism, unspecified <Kierra Morrow - Last Filed: 10/09/17 10:08> (1) Altered mental status Qualifiers: Altered mental status type: unspecified Qualified Code(s): R41.82 - Altered mental status, unspecified (2) Hypertension Qualifiers: Hypertension type: essential hypertension Qualified Code(s): I10 - Essential (primary) hypertension (3) CHF (congestive heart failure) Qualifiers: Heart failure type: unspecified Heart failure chronicity: chronic Qualified Code(s): I50.9 - Heart failure, unspecified (4) GERD (gastroesophageal reflux disease) Qualifiers: Esophagitis presence: esophagitis presence not specified Qualified Code(s): K21.9 - Gastro-esophageal reflux disease without esophagitis (5) Hypothyroidism Qualifiers: Hypothyroidism type: acquired Qualified Code(s): E03.9 - Hypothyroidism, unspecified <Harpreet Guan - Last Filed: 10/09/17 17:43> (1) Altered mental status Qualifiers: Altered mental status type: unspecified Qualified Code(s): R41.82 - Altered mental status, unspecified (2) Hypertension Qualifiers: Hypertension type: essential hypertension Qualified Code(s): I10 - Essential (primary) hypertension (3) CHF (congestive heart failure) Qualifiers: Heart failure type: unspecified Heart failure chronicity: chronic Qualified Code(s): I50.9 - Heart failure, unspecified (4) GERD (gastroesophageal reflux disease) Qualifiers: Esophagitis presence: esophagitis presence not specified Qualified Code(s): K21.9 - Gastro-esophageal reflux disease without esophagitis (5) Hypothyroidism Qualifiers: Hypothyroidism type: acquired Qualified Code(s): E03.9 - Hypothyroidism, unspecified
[2017-10-09] MEDS: Metoprolol Tartrate 25 MG Tablet PO SCH ×3 (10:05→18:22)
[2017-10-09] MEDS: dilTIAZem CD 120 MG Capsule PO SCH (10:06)
[2017-10-10] MEDS: Metoprolol Tartrate 25 MG Tablet PO SCH ×2 (09:02→13:38)
[2017-10-10] MEDS: dilTIAZem CD 120 MG Capsule PO SCH (09:02)
--- NOTE | 2017-10-10 09:37 | P.PNFP ---
Subjective Interval history: Ms. Holloway had no overnight events. She denies any chest pain, shortness of breath, leg pain, abdominal pain, nausea, vomiting. She is eager to the hospital today <Kierra Morrow - 10/10/17 10:55> Results - Labs Result diagrams: 10/06/17 07:05 10/07/17 09:00 <Rachel Guany - 10/10/17 13:16> Physical Exam Vital signs: Vital Signs 10/09/17 15:45 10/09/17 20:00 10/09/17 23:15 Temperature 97.7 F 97.7 F Pulse Rate 70 69 91 H Respiratory Rate 16 18 18 Blood Pressure 141/63 H 133/67 155/80 H Pulse Oximetry 98 99 99 10/10/17 04:00 10/10/17 08:00 10/10/17 08:17 Temperature 97.9 F 97.4 F L Pulse Rate 69 70 70 Respiratory Rate 18 18 Blood Pressure 141/69 H 164/76 H Pulse Oximetry 100 96 10/10/17 11:37 Temperature 97.5 F L Pulse Rate 70 Respiratory Rate 16 Blood Pressure 163/71 H Pulse Oximetry 98 Intake & Output 10/09/17 10/10/17 10/10/17 18:59 06:59 18:59 Intake Total 240 / 240 Balance 240 / 240 Intake: Oral 240 / 240 Other: # Voids 4 Date of Last Bowel Movement 10/08/17 10/08/17 <Harpreet Guan - 10/10/17 13:16> Vital Signs 10/09/17 11:17 10/09/17 15:45 10/09/17 20:00 Temperature 97.7 F 97.7 F 97.7 F Pulse Rate 70 70 69 Respiratory Rate 14 16 18 Blood Pressure 160/71 H 141/63 H 133/67 Pulse Oximetry 99 98 99 10/09/17 23:15 10/10/17 04:00 10/10/17 08:00 Temperature 97.9 F Pulse Rate 91 H 69 70 Respiratory Rate 18 18 Blood Pressure 155/80 H 141/69 H Pulse Oximetry 99 100 10/10/17 08:17 Temperature 97.4 F L Pulse Rate 70 Respiratory Rate 18 Blood Pressure 164/76 H Pulse Oximetry 96 Intake & Output 10/09/17 10/10/17 10/10/17 18:59 06:59 18:59 Intake Total 240 / 240 Balance 240 / 240 Intake: Oral 240 / 240 Other: # Voids 4 Date of Last Bowel Movement 10/08/17 10/08/17 <Kierra Morrow - 10/10/17 09:37> Narrative: GENERAL: Lying in bed, NAD SKIN: Warm and dry. CARDIOVASCULAR: Regular rate and rhythm. RESPIRATORY: No accessory muscle use. Clear to auscultation. Breath sounds equal bilaterally. GASTROINTESTINAL: Abdomen soft, non-tender, nondistended. Normoactive bowel sounds MUSCULOSKELETAL: Extremities without clubbing, cyanosis, or edema. Calves nontender to palpation. NEUROLOGICAL: Awake and alert. Not oriented to person time or place. <Kierra Morrow - 10/10/17 09:37> Assessment and Plan - Assessment (1) Altered mental status Code(s): R41.82 - Altered mental status, unspecified Status: Chronic (2) Hypertension Code(s): I10 - Essential (primary) hypertension Status: Acute (3) CHF (congestive heart failure) Code(s): I50.9 - Heart failure, unspecified Status: Chronic (4) GERD (gastroesophageal reflux disease) Code(s): K21.9 - Gastro-esophageal reflux disease without esophagitis Status: Acute (5) Hypothyroidism Code(s): E03.9 - Hypothyroidism, unspecified Status: Acute (6) DVT prophylaxis Status: Acute (7) Nutrition, metabolism, and development symptoms Code(s): R63.8 - Other symptoms and signs concerning food and fluid intake Status: Acute <Harpreet Guan - 10/10/17 13:16> (1) Altered mental status Code(s): R41.82 - Altered mental status, unspecified Status: Chronic Plan: -[facility] has accepted patient. Plans for DC today to their facility and locked unit. -[place] specific form signed. Rx's printed. -Souza act lifted, medically cleared. -Patient is being followed by [facility] ([place]- manager of case management [phone] and DCF hall supervisor for case Alicia Reese [phone]) -Decision maker will be her sister Dania contact information can be found in patient's chart. (2) Hypertension Code(s): I10 - Essential (primary) hypertension Status: Acute Plan: Monitor blood pressure. -Continue metoprolol 75 TID -Continue Diltiazem 120 daily -Continue to monitor blood pressure -Goal to keep diastolic blood pressure greater than or equal to 65 due to her age (3) CHF (congestive heart failure) Code(s): I50.9 - Heart failure, unspecified Status: Chronic Plan: Continue to monitor for worsening SOB History of CHF documented, no documented ejection fraction No Clinical signs or symptoms consistent with CHF exacerbation Potassium within normal limits supplement was discontinued (4) GERD (gastroesophageal reflux disease) Code(s): K21.9 - Gastro-esophageal reflux disease without esophagitis Status: Acute Plan: Continue Protonix Chronic history of GERD. No evidence of GI bleed or hemorrhage at this time. (5) Hypothyroidism Code(s): E03.9 - Hypothyroidism, unspecified Status: Acute Plan: Resume home levothyroxine on DC 10/07: TSH 1.22 free T4 1.26 within normal limits . (6) DVT prophylaxis Status: Acute Plan: SCDs only. (7) Nutrition, metabolism, and development symptoms Code(s): R63.8 - Other symptoms and signs concerning food and fluid intake Status: Acute Plan: Fluids: Not indicated at this time. Electrolytes: Within normal limits, replete as needed. Nutrition: Regular diet. DVT prophylaxis: SCDs Disposition: Plans to DC to [facility] today <Kierra Morrow - 10/10/17 10:52> - Assessment and Plan 87-year-old female, past medical history of pacer placement, CHF, hypertension, hypothyroidism, presents for altered mental status of unknown timeframe. Patient is here for placement purposes and to rule out alternative causes of delirium/cognitive impairment. She has been having behavioral problems even here in the hospital with donning her high heels and running in the [place]o until she fell. Awaiting placement. <Kierra Morrow - 10/10/17 09:37> - Attending Attestation I have independently examined the patient and discussed the case with resident physicians I have read the above note and agree with the assessment/plan as discussed with me I was involved in all medical decision making for this patient Harpreet Guan MD <Harpreet Guan - 10/10/17 13:16> <Kierra Morrow - Last Filed: 10/10/17 10:52> (1) Altered mental status Qualifiers: Altered mental status type: unspecified Qualified Code(s): R41.82 - Altered mental status, unspecified (2) Hypertension Qualifiers: Hypertension type: essential hypertension Qualified Code(s): I10 - Essential (primary) hypertension (3) CHF (congestive heart failure) Qualifiers: Heart failure type: unspecified Heart failure chronicity: chronic Qualified Code(s): I50.9 - Heart failure, unspecified (4) GERD (gastroesophageal reflux disease) Qualifiers: Esophagitis presence: esophagitis presence not specified Qualified Code(s): K21.9 - Gastro-esophageal reflux disease without esophagitis (5) Hypothyroidism Qualifiers: Hypothyroidism type: acquired Qualified Code(s): E03.9 - Hypothyroidism, unspecified <Harpreet Guan - Last Filed: 10/10/17 13:16> (1) Altered mental status Qualifiers: Altered mental status type: unspecified Qualified Code(s): R41.82 - Altered mental status, unspecified (2) Hypertension Qualifiers: Hypertension type: essential hypertension Qualified Code(s): I10 - Essential (primary) hypertension (3) CHF (congestive heart failure) Qualifiers: Heart failure type: unspecified Heart failure chronicity: chronic Qualified Code(s): I50.9 - Heart failure, unspecified (4) GERD (gastroesophageal reflux disease) Qualifiers: Esophagitis presence: esophagitis presence not specified Qualified Code(s): K21.9 - Gastro-esophageal reflux disease without esophagitis (5) Hypothyroidism Qualifiers: Hypothyroidism type: acquired Qualified Code(s): E03.9 - Hypothyroidism, unspecified <Kierra Morrow - Last Filed: 10/10/17 10:52> (1) Altered mental status Qualifiers: Altered mental status type: unspecified Qualified Code(s): R41.82 - Altered mental status, unspecified (2) Hypertension Qualifiers: Hypertension type: essential hypertension Qualified Code(s): I10 - Essential (primary) hypertension (3) CHF (congestive heart failure) Qualifiers: Heart failure type: unspecified Heart failure chronicity: chronic Qualified Code(s): I50.9 - Heart failure, unspecified (4) GERD (gastroesophageal reflux disease) Qualifiers: Esophagitis presence: esophagitis presence not specified Qualified Code(s): K21.9 - Gastro-esophageal reflux disease without esophagitis (5) Hypothyroidism Qualifiers: Hypothyroidism type: acquired Qualified Code(s): E03.9 - Hypothyroidism, unspecified <Harpreet Guan - Last Filed: 10/10/17 13:16> (1) Altered mental status Qualifiers: Altered mental status type: unspecified Qualified Code(s): R41.82 - Altered mental status, unspecified (2) Hypertension Qualifiers: Hypertension type: essential hypertension Qualified Code(s): I10 - Essential (primary) hypertension (3) CHF (congestive heart failure) Qualifiers: Heart failure type: unspecified Heart failure chronicity: chronic Qualified Code(s): I50.9 - Heart failure, unspecified (4) GERD (gastroesophageal reflux disease) Qualifiers: Esophagitis presence: esophagitis presence not specified Qualified Code(s): K21.9 - Gastro-esophageal reflux disease without esophagitis (5) Hypothyroidism Qualifiers: Hypothyroidism type: acquired Qualified Code(s): E03.9 - Hypothyroidism, unspecified
--- NOTE | 2017-10-10 11:51 | P.DS ---
Date of admission: 09/29/17 17:33 Primary care physician: John Sandoval MD Brief History from admission: 87-year-old female, past medical history of CHF, pacer placement, hypertension, thyroid disorder, presents under Souza act from doctor's office where she was deemed him capable of driving home and caring for herself due to her severe dementia. DCF was contacted and is involved in the case, and most of the history is obtained from the ED physician who spoke with EMS and the doctor's note and the police Souza act form. Apparently the neighbors were primarily caring for this elderly woman until she has seemed to decompensate over time. Doctor became concerned today when she was presenting with severe memory loss after having driven to the doctor's office herself. There are no caretakers or family members present to assist in the history taking. When the patient is asked how she got here she does explain that she went to the doctor's office for regular visit and she was shocked when they put her in a vehicle and took her here. "They forced me here practically. He knew something was not working well and I have to figure out what it was. I needed a new prescription."The patient continues to talk very circumferentially cannot tell a clear story. During her conversation she forgets what she is talking about and starts laughing. On review of systems she denies all, however she does admit to having a small amount of blood come out of her rectum overnight 3 days ago. Denies any chest pain/shortness of breath. Denies any fever/chills. No acute events. DS: Diagnosis - Discharge Diagnosis (1) Altered mental status Status: Chronic (2) Hypertension Status: Acute (3) CHF (congestive heart failure) Status: Chronic (4) GERD (gastroesophageal reflux disease) Status: Acute (5) Hypothyroidism Status: Acute (6) DVT prophylaxis Status: Acute (7) Nutrition, metabolism, and development symptoms Status: Acute DS: Medications - Discharge Medications Prescriptions: diltiazem HCl 120 mg PO DAILY #30 cap donepezil 5 mg PO DAILY #30 tab levothyroxine 25 mcg PO DAILY 30 Days #30 cap memantine 10 mg PO BID #60 cap metoprolol tartrate 25 mg PO TID #270 tab pantoprazole 40 mg PO DAILY #30 cap pravastatin 40 mg PO HS #30 cap DS: Summary Hospital Course: Patient was admitted on 09/29 for altered mental status on Souza act. Workup included toxicology, NARINDER, RPR, infectious workup and head CT all nonrevealing. Patient was started on Aricept and Namenda. Souza act was lifted and patient was medically cleared. Patient continued to be confused. Case management discussed with DCF regarding placement in a locked unit due to patient mental status. Patient DC'd to [place] - Time Spent with Patient Total time spent providing and/or coordinating discharge services: - Quality: VTE Deep Vein Thrombosis/Pulmonary Embolism Present on Admission: No Exam Vital signs: Vital Signs 10/09/17 15:45 10/09/17 20:00 10/09/17 23:15 Temperature 97.7 F 97.7 F Pulse Rate 70 69 91 H Respiratory Rate 16 18 18 Blood Pressure 141/63 H 133/67 155/80 H Pulse Oximetry 98 99 99 10/10/17 04:00 10/10/17 08:00 10/10/17 08:17 Temperature 97.9 F 97.4 F L Pulse Rate 69 70 70 Respiratory Rate 18 18 Blood Pressure 141/69 H 164/76 H Pulse Oximetry 100 96 Intake & Output 10/09/17 10/10/17 10/10/17 18:59 06:59 18:59 Intake Total 240 / 240 Balance 240 / 240 Intake: Oral 240 / 240 Other: # Voids 4 Date of Last Bowel Movement 10/08/17 10/08/17 Results Procedures completed during hospitalization: None - Impressions ITS Impressions Chest X-Ray 09/29/17 14:04 CONCLUSION: No acute cardiopulmonary disease. Head CT 09/29/17 14:04 CONCLUSION: 1. No definite acute finding is identified. There is a focal area of high density measuring 5 mm in the right parafalcine location in the right frontal lobe in the high convexity. Since this was partially present on the a prior examination from 2016 it is extremely unlikely to represent acute blood products. However, it is more prominent than the 2016 study so suggest attention to this at follow-up imaging. 2. Otherwise, stable examination with mild generalized atrophy and mild chronic periventricular white matter change. Discharge Plan - Discharge Disposition Patient Disposition: [facility] - Discharge Condition Condition: Stable - Discharge Order Discharge Orders: Discharge Order (Routine); Ordered 10/10/17 Ordered By: Kierra Morrow - Discharge Details Anticipated Discharge Date: 10/02/17 Discharge Comment: she needs supervision and will be placed in memory care unit. - Physicians Team Primary Care Provider: John Sandoval Attending Provider: Harpreet Guan Other Providers: John Ashby MD
[2017-10-10] MEDS ORDERED: LORazepam 1 MG Tablet PO ONE (13:30)
== END 2017-10-10 15:51 ==
LOC: NEPE 13:20 → NEPHCDU 13:20 → NEDH 13:20 → NEPHCDU 09-30 00:23
PROVIDERS: ADMIT Family Medicine; ATTEND Family Medicine
DX: G93.40 Encephalopathy, unspecified; K21.9 Gastro-esophageal reflux disease without esophagitis; R41.82 Altered mental status, unspecified; G30.9 Alzheimer's disease, unspecified; Z79.899 Other long term (current) drug therapy; Z95.0 Presence of cardiac pacemaker; F02.80 Dementia in other diseases classified elsewhere, unspecified severity, without behavioral disturbance, psychotic disturbance, mood disturbance, and anxiety; K62.5 Hemorrhage of anus and rectum; I11.0 Hypertensive heart disease with heart failure; I50.9 Heart failure, unspecified; F05 Delirium due to known physiological condition; E03.9 Hypothyroidism, unspecified; E78.00 Pure hypercholesterolemia, unspecified